=== PATIENT | female | born 1975 | race African-American/Black ===

== ENCOUNTER 2016-05-13 11:40 | Emergency (ER) | payer MEDICAID ==
[~2016-05-13] VITALS: Ht 170.2 cm; Wt 73.5 kg
[2016-05-13 12:40] VITALS: BP 149/103
[2016-05-13] MEDS ORDERED: HYDROmorphone HCL 2 MG/ML VL IM ONE (13:15)
[2016-05-13] MEDS ORDERED: ONDANSETRON ODT 4 MG TAB PO ONE (13:15)
[2016-05-13] MEDS ORDERED: cefTRIAXone SOD 1,000 MG VL IM ONE (13:15)
== END 2016-05-13 13:16 | disposition home or self-care (01) ==
LOC: ER 11:40
DX: N76.4 Abscess of vulva (principal); E11.9 Type 2 diabetes mellitus without complications; I10 Essential (primary) hypertension; F17.210 Nicotine dependence, cigarettes, uncomplicated
CPT/HCPCS: 10060; 96372; 99284; C1887; J0696; J1170; Q0162

== ENCOUNTER 2017-04-07 08:39 | Inpatient (IN) | payer MEDICAID ==
[~2017-04-07] VITALS: Ht 170.2 cm; Wt 82.1 kg
[2017-04-07] MEDS ORDERED: IPRATROPIUM BROM 0.5 MG/2.5ML INH SOL NEB ONE (09:15)
[2017-04-07] MEDS ORDERED: FUROSEMIDE 40 MG/4 ML VIAL IV ONE (09:15)
[2017-04-07] MEDS ORDERED: ALBUTEROL SULF 2.5 MG/0.5ML(0.5%) NEB SOLN NEB ONE (09:15)
[2017-04-07] MEDS ORDERED: AZITHROMYCIN 500MG/ 250ML 250 ML IV ONE ×2 (10:30→11:00)
[2017-04-07] MEDS ORDERED: cefTRIAXone 1GM/10ml IVPUSH 10 ML IV ONE ×2 (10:30→11:00)
[2017-04-07] MEDS ORDERED: SODIUM CHLORIDE 0.9% 1,000 ML IV SCH (11:00)
[2017-04-07] MEDS ORDERED: HYDROcodone-ACET 5/325MG TAB PO PRN (11:00)
[2017-04-07] MEDS ORDERED: NITROGLYCERIN 0.4 MG SL TAB SL PRN (11:00)
[2017-04-07] MEDS ORDERED: LABETALOL HCL 5 MG/ML ML 20ML VIAL IV PRN ×2 (11:00→15:00)
[2017-04-07] MEDS ORDERED: MORPHINE SULFATE 10 MG/ML INJ 1ML SDV IV PRN (11:00)
[2017-04-07] MEDS ORDERED: KETOROLAC TROMETH 30 MG/ML 1ML VIAL IV ONE (11:00)
[2017-04-07] MEDS ORDERED: ONDANSETRON HCL 4 MG/2 ML VIAL IV PRN (11:00)
[2017-04-07] MEDS ORDERED: CARVEDILOL 3.125 MG TAB PO ONE (11:00)
[2017-04-07] MEDS ORDERED: LISI-646 PO (11:09)
[2017-04-07] MEDS ORDERED: INSUINJ7 IJ (11:09)
[2017-04-07] MEDS ORDERED: INSLANTI SC (11:09)
[2017-04-07] MEDS ORDERED: CARV6.25 PO (11:09)
[2017-04-07 11:20] LABS: INR 0.97 (0.9-1.15); Partial Thromboplastin Time 27.3 sec (22.64-33.71); Prothrombin Time 10.6 sec (9.37-12.3)
[2017-04-07 11:27] LABS: Albumin 2.6 g/dL (3.4-5.0); Bilirubin, Total 0.4 mg/dL (0.2-1.0); Calcium 7.9 mg/dL (8.5-10.1); Potassium 3.6 mmol/L (3.5-5.1); Total Protein 6.8 g/dL (6.4-8.2)
[2017-04-07] MEDS ORDERED: DEXTROSE (50%) 50ML SYRG IV PRN (11:30)
[2017-04-07 11:35] LABS: Basophils # (auto) 0.1 uL; Basophils % (auto) 1.1 % (0.0-2.0); Eosinophils # (auto) 0.1 uL; Eosinophils % (auto) 2.6 % (0.0-7.0); Hemoglobin 15.2 g/dL (12.2-16.2); Lymphocytes # (auto) 2.6 uL; Lymphocytes % (auto) 53.4 % (10.0-50.0); Mean Corpuscular Hemoglobin 28.8 pg (28.0-32.0); Mean Corpuscular Volume 87.5 fL (80.0-100.0); Monocytes # (auto) 0.5 uL; Monocytes % (auto) 10.4 % (0.0-12.0); Neutrophils # (auto) 1.6 uL; Neutrophils % (auto) 32.5 % (37.0-80.0); Nucleated Red Blood Cells % 0.5 %; Platelet Count (auto) 176 10^3/uL (140-450); Red Blood Cells 5.26 10^6/uL (4.0-5.20); Red Cell Distribution Width 13.7 % (11.8-14.3); White Blood Cell 4.8 10^3/uL (4.4-10.8)
[2017-04-07] MEDS ORDERED: ASPirin 81 mg TAB PO ONE (11:45)
[2017-04-07] MEDS ORDERED: ALPRAZolam 0.25 MG TAB PO PRN (11:45)
[2017-04-07 11:46] LABS: Urine Bacteria NONE SEEN /hpf (None Seen); Urine Blood Negative /uL (Negative); Urine Specific Gravity 1.008 (1.001-1.035); Urine WBC 76 /hpf (0 - 5)
[2017-04-07] MEDS: ACCU-CHEK COMFORT CURVE STRIP VI SCH ×3 (11:50→22:00)
[2017-04-07] MEDS: InsuLIN REG 1unit/0.01ml Soln (100units/ml) SC SCH ×3 (11:50→22:00)
[2017-04-07 11:56] LABS: Cholesterol 202 mg/dL (< 200); HDL Cholesterol 122 mg/dL (40-59); LDL Cholesterol 74 mg/dL (< 100); Triglycerides 57 mg/dL (< 150)
[2017-04-07] MEDS ORDERED: NITROGLYCERIN 0.2MG/HR TOPICAL PATCH TD ONE (12:00)
[2017-04-07] MEDS ORDERED: ALBUTEROL SULF 2.5 MG/0.5ML(0.5%) NEB SOLN NEB SCH (12:00)
[2017-04-07 12:09] LABS: Alcohol, Urine < 3.0 mg/dL (0-5); Amphetamine Screen, Urine POSITIVE (NEGATIVE); Barbiturate Scree,Urine NEGATIVE (NEGATIVE); Benzodiazephine Screen, Urine NEGATIVE (NEGATIVE); Cannabinoid Screen, Urine NEGATIVE (NEGATIVE); Cocaine Screen, Urine NEGATIVE (NEGATIVE); Opiate Scree,Urine NEGATIVE (NEGATIVE); Phencyclidine Screen, Urine NEGATIVE (NEGATIVE)
[2017-04-07] MEDS: IPRATROPIUM BROM 0.5 MG/2.5ML INH SOL NEB SCH ×2 (12:25→18:00)
[2017-04-07 14:41] VITALS: BP 145/107
[2017-04-07] MEDS ORDERED: LISINOPRIL 10 MG TAB PO ONE (15:00)
[2017-04-07 16:38] VITALS: BP 122/87
[2017-04-07 17:16] VITALS: BP 122/87
[2017-04-07] MEDS ORDERED: GABA300C10 PO (17:34)
[2017-04-07] MEDS ORDERED: CITA10TA70 PO (17:34)
[2017-04-07] MEDS ORDERED: GABA-339 PO (17:34)
[2017-04-07] MEDS ORDERED: METF-370 PO (17:34)
[2017-04-07] MEDS: MORPHINE SULFATE 10 MG/ML INJ 1ML SDV IV PRN (20:30)
[2017-04-07] MEDS: ATORVASTATIN 20 MG TAB PO SCH (21:59)
[2017-04-07] MEDS: CARVEDILOL 3.125 MG TAB PO SCH (21:59)
[2017-04-07 22:00] VITALS: BP 131/97
[2017-04-07] MEDS: INSULIN DETEMIR(LEVEMIR) 1unit/0.01ml Soln (100units/ml) SC SCH (22:00)
[2017-04-07] MEDS: GABAPENTIN 100 MG CAP PO SCH (22:00)
[2017-04-08] MEDS: MORPHINE SULFATE 10 MG/ML INJ 1ML SDV IV PRN ×4 (00:29→21:10)
[2017-04-08 04:55] VITALS: BP 117/86
[2017-04-08] MEDS: ACCU-CHEK COMFORT CURVE STRIP VI SCH ×4 (05:55→22:20)
[2017-04-08] MEDS: InsuLIN REG 1unit/0.01ml Soln (100units/ml) SC SCH ×4 (05:56→22:19)
[2017-04-08] MEDS: IPRATROPIUM BROM 0.5 MG/2.5ML INH SOL NEB SCH ×4 (06:00→19:40)
[2017-04-08 08:30] VITALS: BP 123/79
[2017-04-08 09:07] LABS: BUN/Creatinine Ratio 26.3; Calcium 8.3 mg/dL (8.5-10.1); Potassium 4.1 mmol/L (3.5-5.1)
[2017-04-08 09:09] LABS: Hematocrit 43.6 % (36.0-46.0); Hemoglobin 14.2 g/dL (12.2-16.2); Mean Corpuscular Hemoglobin 28.5 pg (28.0-32.0); Mean Corpuscular Hgb Conc. 32.5 g/dL (32.0-36.0); Mean Corpuscular Volume 87.6 fL (80.0-100.0); Platelet Count (auto) 159 10^3/uL (140-450); Red Blood Cells 4.97 10^6/uL (4.0-5.20); Red Cell Distribution Width 13.7 % (11.8-14.3); White Blood Cell 4.8 10^3/uL (4.4-10.8)
[2017-04-08 09:16] LABS: Band Neutrophils % (manual) 0
[2017-04-08 09:17] LABS: Basophils % (manual) 0 (0.0-2.0); Blast Cells 0; Metamyelocytes % 0; Myelocytes % 0; Promyelocytes % 0; Reactive Lymphocytes 0
[2017-04-08] MEDS: cefTRIAXone 1GM/10ml IVPUSH 10 ML IV SCH (09:46)
[2017-04-08] MEDS: NITROGLYCERIN 0.2MG/HR TOPICAL PATCH TD SCH (09:48)
[2017-04-08] MEDS: AZITHROMYCIN 500MG/ 250ML 250 ML IV SCH (09:48)
[2017-04-08] MEDS: FUROSEMIDE 40 MG/4 ML VIAL IV SCH (09:49)
[2017-04-08] MEDS: ASPirin 81 mg TAB PO SCH (09:50)
[2017-04-08] MEDS: CARVEDILOL 3.125 MG TAB PO SCH ×2 (09:50→22:02)
[2017-04-08] MEDS: GABAPENTIN 100 MG CAP PO SCH ×2 (09:51→22:03)
[2017-04-08] MEDS: LISINOPRIL 10 MG TAB PO SCH (09:52)
[2017-04-08] MEDS ORDERED: POTASSIUM CHL 20 Meq TABLET PO SCH (10:00)
[2017-04-08] MEDS: INSULIN DETEMIR(LEVEMIR) 1unit/0.01ml Soln (100units/ml) SC SCH ×2 (10:42→22:19)
[2017-04-08 10:59] LABS: Eosinophils % (manual) 2 (0-7); Lymphocytes % (manual) 65 (10.0-50.0); Monocytes % (manual) 8 (0-12)
[2017-04-08] MEDS ORDERED: CARVEDILOL 3.125 MG TAB PO ONE (11:30)
[2017-04-08 12:30] VITALS: BP 130/76
[2017-04-08] MEDS ORDERED: SPIRONOLACTONE 25 MG TAB PO ONE (16:15)
[2017-04-08 17:17] VITALS: BP 102/72
[2017-04-08 22:00] VITALS: BP 114/76
[2017-04-08] MEDS: predniSONE 20 MG TAB PO SCH (22:01)
[2017-04-08] MEDS: ATORVASTATIN 20 MG TAB PO SCH (22:02)
[2017-04-09 05:24] LABS: Basophils # (auto) 0 uL; Basophils % (auto) 0.8 % (0.0-2.0); Eosinophils # (auto) 0.1 uL; Eosinophils % (auto) 1.5 % (0.0-7.0); Hematocrit 44.3 % (36.0-46.0); Hemoglobin 14.6 g/dL (12.2-16.2); Lymphocytes # (auto) 1.4 uL; Lymphocytes % (auto) 33.3 % (10.0-50.0); Mean Corpuscular Hemoglobin 28.9 pg (28.0-32.0); Mean Corpuscular Volume 87.6 fL (80.0-100.0); Monocytes # (auto) 0.4 uL; Monocytes % (auto) 9.2 % (0.0-12.0); Neutrophils # (auto) 2.3 uL; Neutrophils % (auto) 55.2 % (37.0-80.0); Nucleated Red Blood Cells % 0.2 %; Platelet Count (auto) 160 10^3/uL (140-450); Red Blood Cells 5.05 10^6/uL (4.0-5.20); Red Cell Distribution Width 13.4 % (11.8-14.3); White Blood Cell 4.2 10^3/uL (4.4-10.8)
[2017-04-09 05:43] LABS: BUN/Creatinine Ratio 26.7; Calcium 8.9 mg/dL (8.5-10.1)
[2017-04-09 05:45] LABS: Potassium 5.9 mmol/L (3.5-5.1)
[2017-04-09 05:54] VITALS: BP 114/93
[2017-04-09] MEDS: InsuLIN REG 1unit/0.01ml Soln (100units/ml) SC SCH ×3 (06:12→17:29)
[2017-04-09] MEDS: ACCU-CHEK COMFORT CURVE STRIP VI SCH ×3 (06:12→17:29)
[2017-04-09] MEDS: IPRATROPIUM BROM 0.5 MG/2.5ML INH SOL NEB SCH ×3 (06:50→18:00)
[2017-04-09 08:00] VITALS: BP 123/84
[2017-04-09 08:16] VITALS: BP 123/84
[2017-04-09] MEDS: MORPHINE SULFATE 10 MG/ML INJ 1ML SDV IV PRN (09:57)
[2017-04-09] MEDS: cefTRIAXone 1GM/10ml IVPUSH 10 ML IV SCH (09:57)
[2017-04-09] MEDS ORDERED: SPIRONOLACTONE 25 MG TAB PO SCH (10:00)
[2017-04-09] MEDS: FUROSEMIDE 40 MG/4 ML VIAL IV SCH (10:55)
[2017-04-09] MEDS: AZITHROMYCIN 500MG/ 250ML 250 ML IV SCH (10:56)
[2017-04-09] MEDS: ASPirin 81 mg TAB PO SCH (10:56)
[2017-04-09] MEDS: predniSONE 20 MG TAB PO SCH (10:57)
[2017-04-09] MEDS: CARVEDILOL 3.125 MG TAB PO SCH (10:58)
[2017-04-09] MEDS: GABAPENTIN 100 MG CAP PO SCH (10:59)
[2017-04-09] MEDS: LISINOPRIL 10 MG TAB PO SCH (11:00)
[2017-04-09] MEDS: NITROGLYCERIN 0.2MG/HR TOPICAL PATCH TD SCH (11:01)
[2017-04-09] MEDS: INSULIN DETEMIR(LEVEMIR) 1unit/0.01ml Soln (100units/ml) SC SCH (11:32)
[2017-04-09 12:00] VITALS: BP 139/75
[2017-04-09] MEDS ORDERED: CARV6.25 PO (15:44)
[2017-04-09] MEDS ORDERED: PRE5T PO (15:44)
[2017-04-09] MEDS ORDERED: ASPI81CH43 PO (15:44)
[2017-04-09] MEDS ORDERED: SPIR25TA88 PO (15:44)
[2017-04-09] MEDS ORDERED: ATOR20TA50 PO (15:44)
[2017-04-09] MEDS ORDERED: CEPH-37 PO (15:44)
[2017-04-09] MEDS ORDERED: DEXT1LIQ32 PO (15:55)
[2017-04-09 17:09] VITALS: BP 123/68
[2017-04-09 18:55] VITALS: BP 139/75
== END 2017-04-09 20:00 | disposition home or self-care (01) | DRG 190 ==
LOC: ER 08:39 → EDBD 08:39 → TELE 08:40 → TELE-WESTW 16:15
PROVIDERS: ADMIT Internal Medicine; ATTEND Hospitalist
DX: I21.4 Non-ST elevation (NSTEMI) myocardial infarction (principal); J96.01 Acute respiratory failure with hypoxia; I50.33 Acute on chronic diastolic (congestive) heart failure; J18.1 Lobar pneumonia, unspecified organism; I11.0 Hypertensive heart disease with heart failure; I42.0 Dilated cardiomyopathy; E11.40 Type 2 diabetes mellitus with diabetic neuropathy, unspecified; E44.0 Moderate protein-calorie malnutrition; J44.0 Chronic obstructive pulmonary disease with (acute) lower respiratory infection; E78.5 Hyperlipidemia, unspecified; F12.10 Cannabis abuse, uncomplicated; F15.10 Other stimulant abuse, uncomplicated; F17.210 Nicotine dependence, cigarettes, uncomplicated; F41.9 Anxiety disorder, unspecified; Z82.49 Family history of ischemic heart disease and other diseases of the circulatory system; Z79.4 Long term (current) use of insulin; Z79.899 Other long term (current) drug therapy; Z68.28 Body mass index [BMI] 28.0-28.9, adult
CPT/HCPCS: 36415; 71046; 80048; 80053; 80061; 80307; 81001; 82962; 83036; 83880; 84132; 84443; 84484; 85007; 85025; 85027; 85610; 85730; 87040; 87070; 87205; 87400; 93005; 93306; 94640; 96361; 96365; 96372; 96375; J1815; J1885; J2405

== ENCOUNTER 2017-11-03 12:05 | Inpatient (IN) | payer MEDICAID ==
[~2017-11-03] VITALS: Ht 170.2 cm; Wt 81.6 kg
[~2017-11-03 12:05] MED LIST: ASPI81CH43 PO; ATOR20TA50 PO; CARV6.25 PO; CEPH-37 PO; CITA10TA70 PO; DEXT1LIQ32 PO; GABA-339 PO; GABA300C10 PO; INSLANTI SC; INSUINJ7 IJ; LISI-646 PO; METF-370 PO; PRE5T PO; SPIR25TA88 PO
[2017-11-03 16:08] LABS: Hematocrit 46.3 % (36.0-46.0); Hemoglobin 15.1 g/dL (12.2-16.2); Mean Corpuscular Hemoglobin 28.5 pg (28.0-32.0); Mean Corpuscular Hgb Conc. 32.7 g/dL (32.0-36.0); Mean Corpuscular Volume 87.2 fL (80.0-100.0); Platelet Count (auto) 160 10^3/uL (140-450); Red Blood Cells 5.31 10^6/uL (4.0-5.20); Red Cell Distribution Width 14.4 % (11.8-14.3); White Blood Cell 5.1 10^3/uL (4.4-10.8)
[2017-11-03 16:19] LABS: Band Neutrophils % (manual) 0; Basophils % (manual) 0 (0.0-2.0); Blast Cells 0; Eosinophils % (manual) 0 (0-7); Metamyelocytes % 0; Myelocytes % 0; Promyelocytes % 0; Reactive Lymphocytes 0
[2017-11-03 16:30] LABS: Albumin 2.6 g/dL (3.4-5.0); BUN/Creatinine Ratio 10.5; Bilirubin, Total 0.9 mg/dL (0.2-1.0); Calcium 7.7 mg/dL (8.5-10.1); Potassium 5.1 mmol/L (3.5-5.1)
[2017-11-03 17:05] LABS: Lymphocytes % (manual) 57 (10.0-50.0); Monocytes % (manual) 10 (0-12)
[2017-11-03 17:19] LABS: Urine Pregnacy Test Negative (Negative)
[2017-11-03 17:23] LABS: Urine Bacteria NONE SEEN /hpf (None Seen); Urine Blood 1+ /uL (Negative); Urine Mucus FEW (None Seen); Urine Specific Gravity 1.043 (1.001-1.035); Urine WBC 7 /hpf (0 - 5)
[2017-11-03 17:39] LABS: Alcohol, Urine < 3.0 mg/dL (0-5); Amphetamine Screen, Urine POSITIVE (NEGATIVE); Barbiturate Scree,Urine NEGATIVE (NEGATIVE); Benzodiazephine Screen, Urine NEGATIVE (NEGATIVE); Cannabinoid Screen, Urine POSITIVE (NEGATIVE); Cocaine Screen, Urine NEGATIVE (NEGATIVE); Opiate Scree,Urine NEGATIVE (NEGATIVE); Phencyclidine Screen, Urine NEGATIVE (NEGATIVE)
[2017-11-03] MEDS ORDERED: MORPHINE SULFATE 4 MG/ML SYR/VIAL IV ONE (17:45)
[2017-11-03] MEDS ORDERED: FUROSEMIDE 40 MG/4 ML VIAL IV ONE (17:45)
[2017-11-03] MEDS ORDERED: ONDANSETRON HCL 4 MG/2 ML VIAL IV ONE (17:45)
[2017-11-03] MEDS ORDERED: PROMETHAZINE HCL 25 MG/ML 1ML ONE (17:52)
[2017-11-03] MEDS ORDERED: NITROGLYCERIN 0.4 MG SL TAB SL PRN (18:00)
[2017-11-03] MEDS ORDERED: DEXTROSE (50%) 50ML SYRG IV PRN (18:00)
[2017-11-03] MEDS ORDERED: ACETAMINOPHEN 325 MG TAB PO PRN (18:00)
[2017-11-03] MEDS ORDERED: MORPHINE SULF INJ 2 MG/ML SYRINGE 1ML IV PRN ×2 (18:00)
[2017-11-03] MEDS ORDERED: TEMAZEPAM 15 MG CAP PO PRN (18:00)
[2017-11-03] MEDS ORDERED: PROMETHAZINE HCL 25 MG/ML 1ML IV ONE (18:00)
[2017-11-03] MEDS ORDERED: DOCUSATE SOD 100 MG CAP PO PRN (18:00)
[2017-11-03] MEDS: SPIRONOLACTONE 25 MG TAB PO SCH (18:23)
[2017-11-03] MEDS ORDERED: PROMETHAZINE HCL 25 MG/ML 1ML IV PRN (18:30)
[2017-11-03] MEDS ORDERED: cloNIDine HCL 0.1 MG TAB PO PRN (18:30)
[2017-11-03] MEDS: Glucerna Carbsteady SHAKE Vanilla 8oz PO SCH (18:33)
[2017-11-03 19:16] LABS: INR 1.02 (0.9-1.15); Prothrombin Time 10.9 sec (9.27-12.13)
[2017-11-03] MEDS ORDERED: GABAPENTIN 300 MG CAP PO SCH (22:00)
[2017-11-03] MEDS: APIDRA 100 UNIT/ML SC SCH (22:00)
[2017-11-03] MEDS: CARVEDILOL 12.5 MG TAB PO SCH (22:06)
[2017-11-03] MEDS ORDERED: CARVEDILOL 3.125 MG TAB PO ONE (22:15)
[2017-11-03] MEDS ORDERED: hydrALAZINE HCL 25 MG TAB PO ONE (22:15)
[2017-11-03] MEDS: ACCU-CHEK COMFORT CURVE STRIP VI SCH (22:30)
[2017-11-03] MEDS: FAMOTIDINE 20 MG TAB PO SCH (22:30)
[2017-11-03] MEDS: INSULIN LANTUS (GLARGINE) 1 /0.01ml (100units/ml) SC SCH (22:30)
[2017-11-03] MEDS: InsuLIN REG 1unit/0.01ml Soln (100units/ml) SC SCH (22:30)
[2017-11-03] MEDS: SODIUM CHLOR 0.9% PF (SALINE LOCK) 10ML VIAL/SYR IV SCH (23:00)
[2017-11-04] VITALS (7 sets, daily range): BP systolic 90–104; BP diastolic 57–73
[2017-11-04] MEDS: SPIRONOLACTONE 25 MG TAB PO SCH ×2 (05:44→18:28)
[2017-11-04] MEDS: SODIUM CHLOR 0.9% PF (SALINE LOCK) 10ML VIAL/SYR IV SCH ×3 (05:46→21:37)
[2017-11-04] MEDS: FUROSEMIDE 40 MG/4 ML VIAL IV SCH ×2 (05:46→18:27)
[2017-11-04] MEDS: APIDRA 100 UNIT/ML SC SCH ×3 (05:59→21:37)
[2017-11-04] MEDS: ACCU-CHEK COMFORT CURVE STRIP VI SCH ×4 (06:19→21:46)
[2017-11-04] MEDS: HYDROcodone-ACET 5/325MG TAB PO PRN ×4 (06:35→23:33)
[2017-11-04] MEDS: InsuLIN REG 1unit/0.01ml Soln (100units/ml) SC SCH ×4 (06:37→21:52)
[2017-11-04] MEDS: INSULIN LANTUS (GLARGINE) 1 /0.01ml (100units/ml) SC SCH ×2 (06:38→21:49)
[2017-11-04] MEDS: Glucerna Carbsteady SHAKE Vanilla 8oz PO SCH ×3 (08:00→18:28)
[2017-11-04] MEDS ORDERED: PNEUMOCOCCAL VACC POLYS 25 MCG/0.5 ML VIAL IM ONE (09:00)
[2017-11-04] MEDS: FAMOTIDINE 20 MG TAB PO SCH ×2 (09:20→21:36)
[2017-11-04] MEDS: CITALOPRAM HYDROBR 20 MG TAB PO SCH (09:20)
[2017-11-04] MEDS: MULTIPLE VITAMIN TAB PO SCH (09:21)
[2017-11-04] MEDS: CARVEDILOL 12.5 MG TAB PO SCH ×2 (09:22→21:46)
[2017-11-04] MEDS ORDERED: hydrALAZINE HCL 25 MG TAB PO SCH (10:00)
[2017-11-04] MEDS ORDERED: GABAPENTIN 300 MG CAP PO SCH (10:00)
[2017-11-04] MEDS ORDERED: CARVEDILOL 3.125 MG TAB PO SCH (10:00)
[2017-11-04] MEDS ORDERED: FUROSEMIDE 40 MG/4 ML VIAL IV SCH (10:00)
[2017-11-04] MEDS ORDERED: LISINOPRIL 20 MG TAB PO SCH (10:00)
[2017-11-04] MEDS ORDERED: predniSONE 20 MG TAB PO SCH (10:00)
[2017-11-04 11:10] LABS: Basophils # (auto) 0 uL; Basophils % (auto) 0.7 % (0.0-2.0); Eosinophils # (auto) 0 uL; Eosinophils % (auto) 0.7 % (0.0-7.0); Hematocrit 44.6 % (36.0-46.0); Hemoglobin 14.5 g/dL (12.2-16.2); Lymphocytes # (auto) 2.3 uL; Mean Corpuscular Hemoglobin 28.2 pg (28.0-32.0); Mean Corpuscular Hgb Conc. 32.4 g/dL (32.0-36.0); Mean Corpuscular Volume 86.8 fL (80.0-100.0); Monocytes # (auto) 0.4 uL; Monocytes % (auto) 9.2 % (0.0-12.0); Neutrophils # (auto) 1.9 uL; Neutrophils % (auto) 40.4 % (37.0-80.0); Nucleated Red Blood Cells % 0.1 %; Platelet Count (auto) 154 10^3/uL (140-450); Red Blood Cells 5.13 10^6/uL (4.0-5.20); Red Cell Distribution Width 14.2 % (11.8-14.3); White Blood Cell 4.7 10^3/uL (4.4-10.8)
[2017-11-04 11:28] LABS: Albumin 2.2 g/dL (3.4-5.0); BUN/Creatinine Ratio 11.9; Bilirubin, Total 0.5 mg/dL (0.2-1.0); Calcium 7.6 mg/dL (8.5-10.1); Potassium 4.6 mmol/L (3.5-5.1); Total Protein 6.2 g/dL (6.4-8.2)
[2017-11-04] MEDS: METOCLOPRAMIDE HCL 5MG/ml INJ 2ml VIAL IV SCH ×2 (17:18→23:31)
[2017-11-04] MEDS: GABAPENTIN 300 MG CAP PO SCH (21:36)
[2017-11-05 05:00] VITALS: BP 90/51
[2017-11-05] MEDS: FUROSEMIDE 40 MG/4 ML VIAL IV SCH (05:40)
[2017-11-05] MEDS: APIDRA 100 UNIT/ML SC SCH ×2 (05:41→14:00)
[2017-11-05] MEDS: SODIUM CHLOR 0.9% PF (SALINE LOCK) 10ML VIAL/SYR IV SCH ×2 (05:41→14:12)
[2017-11-05] MEDS: METOCLOPRAMIDE HCL 5MG/ml INJ 2ml VIAL IV SCH ×2 (05:41→11:23)
[2017-11-05] MEDS: SPIRONOLACTONE 25 MG TAB PO SCH (05:58)
[2017-11-05] MEDS: ACCU-CHEK COMFORT CURVE STRIP VI SCH ×2 (06:07→11:24)
[2017-11-05] MEDS: InsuLIN REG 1unit/0.01ml Soln (100units/ml) SC SCH ×2 (06:07→11:25)
[2017-11-05] MEDS: HYDROcodone-ACET 5/325MG TAB PO PRN (06:07)
[2017-11-05] MEDS: INSULIN LANTUS (GLARGINE) 1 /0.01ml (100units/ml) SC SCH (06:07)
[2017-11-05 07:03] LABS: Hematocrit 42.2 % (36.0-46.0); Hemoglobin 14.1 g/dL (12.2-16.2); Mean Corpuscular Hemoglobin 28.9 pg (28.0-32.0); Mean Corpuscular Hgb Conc. 33.3 g/dL (32.0-36.0); Mean Corpuscular Volume 86.7 fL (80.0-100.0); Platelet Count (auto) 150 10^3/uL (140-450); Red Blood Cells 4.86 10^6/uL (4.0-5.20); Red Cell Distribution Width 14.3 % (11.8-14.3); White Blood Cell 5.7 10^3/uL (4.4-10.8)
[2017-11-05 07:06] LABS: Band Neutrophils % (manual) 0; Basophils % (manual) 0 (0.0-2.0); Blast Cells 0; Metamyelocytes % 0; Myelocytes % 0; Promyelocytes % 0; Reactive Lymphocytes 0
[2017-11-05 07:22] LABS: Potassium 4.5 mmol/L (3.5-5.1)
[2017-11-05 07:28] LABS: Albumin 2.1 g/dL (3.4-5.0); BUN/Creatinine Ratio 18.9; Calcium 7.9 mg/dL (8.5-10.1)
[2017-11-05 07:31] LABS: Bilirubin, Total 0.3 mg/dL (0.2-1.0); Total Protein 6.1 g/dL (6.4-8.2)
[2017-11-05 07:45] LABS: Eosinophils % (manual) 2 (0-7); Lymphocytes % (manual) 63 (10.0-50.0); Monocytes % (manual) 6 (0-12)
[2017-11-05 08:34] VITALS: BP 92/71
[2017-11-05] MEDS: Glucerna Carbsteady SHAKE Vanilla 8oz PO SCH ×2 (09:54→12:00)
[2017-11-05] MEDS: CARVEDILOL 12.5 MG TAB PO SCH (09:55)
[2017-11-05] MEDS: FAMOTIDINE 20 MG TAB PO SCH (09:55)
[2017-11-05] MEDS: MULTIPLE VITAMIN TAB PO SCH (09:55)
[2017-11-05] MEDS: CITALOPRAM HYDROBR 20 MG TAB PO SCH (09:55)
[2017-11-05] MEDS: GABAPENTIN 300 MG CAP PO SCH (09:56)
[2017-11-05 12:14] VITALS: BP 109/70
== END 2017-11-05 15:47 | disposition home or self-care (01) | DRG 194 ==
LOC: ER 12:05 → EDBD 12:05 → TELE 12:06 → TELE-EAST 23:52
PROVIDERS: ADMIT Internal Medicine; ATTEND Hospitalist
DX: I13.0 Hypertensive heart and chronic kidney disease with heart failure and stage 1 through stage 4 chronic kidney disease, or unspecified chronic kidney disease (principal); E11.21 Type 2 diabetes mellitus with diabetic nephropathy; E44.0 Moderate protein-calorie malnutrition; I42.7 Cardiomyopathy due to drug and external agent; E11.65 Type 2 diabetes mellitus with hyperglycemia; I50.43 Acute on chronic combined systolic (congestive) and diastolic (congestive) heart failure; E87.1 Hypo-osmolality and hyponatremia; K80.20 Calculus of gallbladder without cholecystitis without obstruction; E11.22 Type 2 diabetes mellitus with diabetic chronic kidney disease; N18.2 Chronic kidney disease, stage 2 (mild); F15.90 Other stimulant use, unspecified, uncomplicated; F17.210 Nicotine dependence, cigarettes, uncomplicated; F41.9 Anxiety disorder, unspecified; I25.10 Atherosclerotic heart disease of native coronary artery without angina pectoris; N20.0 Calculus of kidney; Z82.49 Family history of ischemic heart disease and other diseases of the circulatory system; Z83.3 Family history of diabetes mellitus; Z87.442 Personal history of urinary calculi; Z90.49 Acquired absence of other specified parts of digestive tract; Z79.899 Other long term (current) drug therapy; Z79.82 Long term (current) use of aspirin; Z79.4 Long term (current) use of insulin; Z68.28 Body mass index [BMI] 28.0-28.9, adult
CPT/HCPCS: 36415; 71046; 71260; 74177; 76705; 80053; 80307; 81001; 81025; 82150; 82962; 83036; 83690; 83880; 84484; 85007; 85025; 85027; 85379; 85610; 87081; 93005; 93306; 96374; 96375; J1815

== ENCOUNTER 2017-11-16 05:13 | Inpatient (IN) | payer MEDICAID ==
[~2017-11-16] VITALS: Ht 170.2 cm; Wt 89.3 kg
[~2017-11-16 05:13] MED LIST changes: -CEPH-37 PO; -DEXT1LIQ32 PO; -LISI-646 PO; -PRE5T PO
[2017-11-16] MEDS ORDERED: ONDANSETRON HCL 4 MG/2 ML VIAL IV ONE (08:15)
[2017-11-16] MEDS ORDERED: KETOROLAC TROMETH 30 MG/ML 1ML VIAL IV ONE (08:15)
[2017-11-16 08:47] LABS: Basophils # (auto) 0 uL; Basophils % (auto) 0.7 % (0.0-2.0); Eosinophils # (auto) 0 uL; Eosinophils % (auto) 0.6 % (0.0-7.0); Hematocrit 45.2 % (36.0-46.0); Hemoglobin 14.4 g/dL (12.2-16.2); Lymphocytes % (auto) 38.4 % (10.0-50.0); Mean Corpuscular Hemoglobin 27.7 pg (28.0-32.0); Mean Corpuscular Hgb Conc. 31.8 g/dL (32.0-36.0); Monocytes # (auto) 0.5 uL; Monocytes % (auto) 8.7 % (0.0-12.0); Neutrophils # (auto) 2.7 uL; Neutrophils % (auto) 51.6 % (37.0-80.0); Nucleated Red Blood Cells % 0.1 %; Platelet Count (auto) 149 10^3/uL (140-450); Red Blood Cells 5.19 10^6/uL (4.0-5.20); Red Cell Distribution Width 14.6 % (11.8-14.3); White Blood Cell 5.3 10^3/uL (4.4-10.8)
[2017-11-16 09:03] LABS: INR 1.12 (0.9-1.15); Partial Thromboplastin Time 26.1 sec (23.78-33.04); Prothrombin Time 11.9 sec (9.27-12.13)
[2017-11-16 09:11] LABS: Albumin 2.5 g/dL (3.4-5.0); BUN/Creatinine Ratio 13.7; Bilirubin, Total 0.8 mg/dL (0.2-1.0); Calcium 7.9 mg/dL (8.5-10.1); Potassium 3.9 mmol/L (3.5-5.1); Total Protein 6.4 g/dL (6.4-8.2)
[2017-11-16] MEDS ORDERED: MORPHINE SULFATE 4 MG/ML SYR/VIAL ONE (09:18)
[2017-11-16] MEDS ORDERED: MORPHINE SULFATE 4 MG/ML SYR/VIAL IV ONE (09:30)
[2017-11-16] MEDS ORDERED: PANTOPRAZOLE 40 MG/10 ML VIAL IV ONE (11:00)
[2017-11-16] MEDS ORDERED: cloNIDine HCL 0.1 MG TAB ONE (11:07)
[2017-11-16] MEDS ORDERED: cloNIDine HCL 0.1 MG TAB PO ONE (11:15)
[2017-11-16] MEDS ORDERED: DEXTROSE (50%) 50ML SYRG IV PRN (14:15)
[2017-11-16] MEDS ORDERED: FUROSEMIDE 40 MG/4 ML VIAL IV ONE (14:15)
[2017-11-16] MEDS ORDERED: POTASSIUM CHL 10 Meq TABLET PO ONE (14:15)
[2017-11-16] MEDS: LISINOPRIL 10 MG TAB PO SCH ×2 (14:30→21:37)
[2017-11-16] MEDS ORDERED: MORPHINE SULF INJ 2 MG/ML SYRINGE 1ML IV PRN (14:30)
[2017-11-16] MEDS ORDERED: DOCUSATE SOD 100 MG CAP PO PRN (14:30)
[2017-11-16] MEDS ORDERED: HYDROcodone-ACET 5/325MG TAB PO PRN (14:30)
[2017-11-16] MEDS ORDERED: NITROGLYCERIN 0.4 MG SL TAB SL PRN (14:30)
[2017-11-16] MEDS ORDERED: TEMAZEPAM 15 MG CAP PO PRN (14:30)
[2017-11-16] MEDS ORDERED: CARVEDILOL 12.5 MG TAB PO ONE (14:30)
[2017-11-16] MEDS ORDERED: ACETAMINOPHEN 325 MG TAB PO PRN (14:30)
[2017-11-16] MEDS: FAMOTIDINE 20 MG TAB PO SCH ×2 (14:37→21:37)
[2017-11-16] MEDS: MORPHINE SULF INJ 2 MG/ML SYRINGE 1ML IV PRN ×2 (16:40→21:51)
[2017-11-16] MEDS: ONDANSETRON HCL 4 MG/2 ML VIAL IV PRN ×2 (16:40→21:43)
[2017-11-16] MEDS ORDERED: PNEUMOCOCCAL VACC POLYS 25 MCG/0.5 ML VIAL IM ONE (18:00)
[2017-11-16] MEDS: ACCU-CHEK COMFORT CURVE STRIP VI SCH ×2 (18:13→22:02)
[2017-11-16] MEDS: SPIRONOLACTONE 25 MG TAB PO SCH (18:24)
[2017-11-16] MEDS: InsuLIN REG 1unit/0.01ml Soln (100units/ml) SC SCH ×2 (18:25→21:59)
[2017-11-16] MEDS: Glucerna Carbsteady SHAKE Vanilla 8oz PO SCH (18:43)
[2017-11-16 21:31] VITALS: BP 110/74
[2017-11-16] MEDS: ATORVASTATIN 20 MG TAB PO SCH (21:36)
[2017-11-16] MEDS: GABAPENTIN 300 MG CAP PO SCH (21:36)
[2017-11-16] MEDS: CARVEDILOL 12.5 MG TAB PO SCH (21:36)
[2017-11-16] MEDS: SODIUM CHLOR 0.9% PF (SALINE LOCK) 10ML VIAL/SYR IV SCH (21:40)
[2017-11-16] MEDS: INSULIN LANTUS (GLARGINE) 1 /0.01ml (100units/ml) SC SCH (21:57)
[2017-11-17 05:09] VITALS: BP 107/81
[2017-11-17] MEDS: SODIUM CHLOR 0.9% PF (SALINE LOCK) 10ML VIAL/SYR IV SCH ×3 (06:43→23:47)
[2017-11-17] MEDS: SPIRONOLACTONE 25 MG TAB PO SCH (06:44)
[2017-11-17] MEDS: INSULIN LANTUS (GLARGINE) 1 /0.01ml (100units/ml) SC SCH ×2 (06:45→22:00)
[2017-11-17] MEDS: ACCU-CHEK COMFORT CURVE STRIP VI SCH ×4 (06:46→23:53)
[2017-11-17] MEDS: InsuLIN REG 1unit/0.01ml Soln (100units/ml) SC SCH ×4 (06:47→22:00)
[2017-11-17 07:04] LABS: Basophils # (auto) 0 uL; Basophils % (auto) 0.6 % (0.0-2.0); Eosinophils # (auto) 0.1 uL; Eosinophils % (auto) 1.7 % (0.0-7.0); Hematocrit 41.8 % (36.0-46.0); Hemoglobin 13.4 g/dL (12.2-16.2); Lymphocytes # (auto) 2.4 uL; Lymphocytes % (auto) 51.3 % (10.0-50.0); Mean Corpuscular Hemoglobin 28.2 pg (28.0-32.0); Mean Corpuscular Hgb Conc. 32.2 g/dL (32.0-36.0); Mean Corpuscular Volume 87.6 fL (80.0-100.0); Monocytes # (auto) 0.5 uL; Neutrophils # (auto) 1.7 uL; Neutrophils % (auto) 36.4 % (37.0-80.0); Nucleated Red Blood Cells % 0.2 %; Platelet Count (auto) 123 10^3/uL (140-450); Red Blood Cells 4.77 10^6/uL (4.0-5.20); Red Cell Distribution Width 14.6 % (11.8-14.3); White Blood Cell 4.8 10^3/uL (4.4-10.8)
[2017-11-17 07:29] LABS: Albumin 2.2 g/dL (3.4-5.0); BUN/Creatinine Ratio 13.6; Bilirubin, Total 0.8 mg/dL (0.2-1.0); Calcium 7.4 mg/dL (8.5-10.1); Potassium 4.1 mmol/L (3.5-5.1); Total Protein 5.8 g/dL (6.4-8.2)
[2017-11-17 08:41] VITALS: BP 97/73
[2017-11-17] MEDS: ASPirin-EC 81 mg tab PO SCH (09:53)
[2017-11-17] MEDS: FAMOTIDINE 20 MG TAB PO SCH ×2 (09:53→23:49)
[2017-11-17] MEDS: MULTIPLE VITAMIN TAB PO SCH (09:53)
[2017-11-17] MEDS: CITALOPRAM HYDROBR 20 MG TAB PO SCH (10:00)
[2017-11-17] MEDS: CARVEDILOL 12.5 MG TAB PO SCH ×2 (10:00→23:49)
[2017-11-17] MEDS: LISINOPRIL 10 MG TAB PO SCH ×2 (10:00→23:48)
[2017-11-17] MEDS: FUROSEMIDE 40 MG/4 ML VIAL IV SCH (10:00)
[2017-11-17] MEDS: POTASSIUM CHL 10 Meq TABLET PO SCH (10:00)
[2017-11-17] MEDS: Glucerna Carbsteady SHAKE Vanilla 8oz PO SCH ×2 (10:10→15:03)
[2017-11-17 13:00] VITALS: BP 107/78
[2017-11-17 17:12] VITALS: BP 115/78
[2017-11-17] MEDS: ONDANSETRON HCL 4 MG/2 ML VIAL IV PRN (20:34)
[2017-11-17] MEDS: MORPHINE SULF INJ 2 MG/ML SYRINGE 1ML IV PRN (20:39)
[2017-11-17 22:00] VITALS: BP 101/75
[2017-11-17] MEDS: GABAPENTIN 300 MG CAP PO SCH (23:49)
[2017-11-17] MEDS: ATORVASTATIN 20 MG TAB PO SCH (23:49)
[2017-11-18 05:00] VITALS: BP_SYST 107; BP_SYST 128; BP_DIAS 60; BP_DIAS 74
[2017-11-18] MEDS: SPIRONOLACTONE 25 MG TAB PO SCH ×3 (06:11→18:16)
[2017-11-18] MEDS: SODIUM CHLOR 0.9% PF (SALINE LOCK) 10ML VIAL/SYR IV SCH ×3 (06:20→22:16)
[2017-11-18] MEDS: ACCU-CHEK COMFORT CURVE STRIP VI SCH ×4 (06:22→22:20)
[2017-11-18] MEDS: INSULIN LANTUS (GLARGINE) 1 /0.01ml (100units/ml) SC SCH ×2 (06:23→22:20)
[2017-11-18] MEDS: InsuLIN REG 1unit/0.01ml Soln (100units/ml) SC SCH ×4 (06:24→22:19)
[2017-11-18] MEDS: Glucerna Carbsteady SHAKE Vanilla 8oz PO SCH ×3 (08:00→18:16)
[2017-11-18 09:00] VITALS: BP 96/66
[2017-11-18] MEDS: FAMOTIDINE 20 MG TAB PO SCH (10:00)
[2017-11-18] MEDS: LISINOPRIL 10 MG TAB PO SCH ×2 (10:00→22:18)
[2017-11-18] MEDS: CARVEDILOL 12.5 MG TAB PO SCH ×2 (10:00→22:17)
[2017-11-18] MEDS: MULTIPLE VITAMIN TAB PO SCH (10:00)
[2017-11-18] MEDS: CITALOPRAM HYDROBR 20 MG TAB PO SCH (10:00)
[2017-11-18] MEDS: POTASSIUM CHL 10 Meq TABLET PO SCH (10:00)
[2017-11-18] MEDS: ASPirin-EC 81 mg tab PO SCH (10:00)
[2017-11-18] MEDS: FUROSEMIDE 40 MG/4 ML VIAL IV SCH (10:00)
[2017-11-18 14:22] VITALS: BP 92/62
[2017-11-18 17:00] VITALS: BP 110/64
[2017-11-18 22:00] VITALS: BP 127/82
[2017-11-18] MEDS: ATORVASTATIN 20 MG TAB PO SCH (22:17)
[2017-11-18] MEDS: GABAPENTIN 300 MG CAP PO SCH (22:17)
[2017-11-18] MEDS: PANTOPRAZOLE 40 MG TAB PO SCH (22:18)
[2017-11-19] MEDS: ONDANSETRON HCL 4 MG/2 ML VIAL IV PRN ×2 (01:21→09:20)
[2017-11-19] MEDS: MORPHINE SULF INJ 2 MG/ML SYRINGE 1ML IV PRN ×2 (01:22→09:21)
[2017-11-19 05:08] VITALS: BP 101/73
[2017-11-19] MEDS: SPIRONOLACTONE 25 MG TAB PO SCH (06:38)
[2017-11-19] MEDS: SODIUM CHLOR 0.9% PF (SALINE LOCK) 10ML VIAL/SYR IV SCH (06:38)
[2017-11-19] MEDS: ACCU-CHEK COMFORT CURVE STRIP VI SCH ×2 (06:39→11:30)
[2017-11-19] MEDS: InsuLIN REG 1unit/0.01ml Soln (100units/ml) SC SCH ×2 (06:45→11:30)
[2017-11-19] MEDS: INSULIN LANTUS (GLARGINE) 1 /0.01ml (100units/ml) SC SCH (06:46)
[2017-11-19 07:13] LABS: Hematocrit 41.1 % (36.0-46.0); Hemoglobin 13.6 g/dL (12.2-16.2); Mean Corpuscular Hemoglobin 28.6 pg (28.0-32.0); Mean Corpuscular Hgb Conc. 33.2 g/dL (32.0-36.0); Mean Corpuscular Volume 86.3 fL (80.0-100.0); Platelet Count (auto) 127 10^3/uL (140-450); Red Blood Cells 4.76 10^6/uL (4.0-5.20); Red Cell Distribution Width 14.5 % (11.8-14.3); White Blood Cell 5.9 10^3/uL (4.4-10.8)
[2017-11-19 07:16] LABS: Band Neutrophils % (manual) 0; Basophils % (manual) 0 (0.0-2.0); Blast Cells 0; Eosinophils % (manual) 0 (0-7); Metamyelocytes % 0; Myelocytes % 0; Promyelocytes % 0; Reactive Lymphocytes 0
[2017-11-19 07:28] LABS: BUN/Creatinine Ratio 15.5; Calcium 7.6 mg/dL (8.5-10.1); Magnesium 2.1 mg/dL (1.6-2.6); Potassium 4.6 mmol/L (3.5-5.1)
[2017-11-19 08:00] VITALS: BP 101/73
[2017-11-19 09:00] VITALS: BP 95/68
[2017-11-19] MEDS: CITALOPRAM HYDROBR 20 MG TAB PO SCH (09:19)
[2017-11-19] MEDS: POTASSIUM CHL 10 Meq TABLET PO SCH (09:19)
[2017-11-19] MEDS: MULTIPLE VITAMIN TAB PO SCH (09:19)
[2017-11-19] MEDS: LISINOPRIL 10 MG TAB PO SCH (09:19)
[2017-11-19] MEDS: ASPirin-EC 81 mg tab PO SCH (09:20)
[2017-11-19] MEDS: PANTOPRAZOLE 40 MG TAB PO SCH (09:20)
[2017-11-19] MEDS: CARVEDILOL 12.5 MG TAB PO SCH (09:20)
[2017-11-19] MEDS: FUROSEMIDE 40 MG/4 ML VIAL IV SCH (09:22)
[2017-11-19 09:23] LABS: Lymphocytes % (manual) 55 (10.0-50.0); Monocytes % (manual) 7 (0-12)
[2017-11-19] MEDS: Glucerna Carbsteady SHAKE Vanilla 8oz PO SCH ×2 (11:49→12:00)
[2017-11-19 12:51] VITALS: BP 95/68
[2017-11-19 13:00] VITALS: BP 105/59
== END 2017-11-19 17:08 | disposition home or self-care (01) ==
LOC: EDBD 05:13 → ER 05:18 → TELE 05:19 → TELE-EAST 16:57
PROVIDERS: ADMIT Internal Medicine; ATTEND Internal Medicine
DX: K80.00 Calculus of gallbladder with acute cholecystitis without obstruction (principal); I50.43 Acute on chronic combined systolic (congestive) and diastolic (congestive) heart failure; E44.0 Moderate protein-calorie malnutrition; E11.21 Type 2 diabetes mellitus with diabetic nephropathy; I42.9 Cardiomyopathy, unspecified; E87.1 Hypo-osmolality and hyponatremia; I13.0 Hypertensive heart and chronic kidney disease with heart failure and stage 1 through stage 4 chronic kidney disease, or unspecified chronic kidney disease; E11.22 Type 2 diabetes mellitus with diabetic chronic kidney disease; N18.2 Chronic kidney disease, stage 2 (mild); E78.5 Hyperlipidemia, unspecified; F15.10 Other stimulant abuse, uncomplicated; F17.210 Nicotine dependence, cigarettes, uncomplicated; Z79.899 Other long term (current) drug therapy; Z79.82 Long term (current) use of aspirin; Z79.84 Long term (current) use of oral hypoglycemic drugs; Z87.442 Personal history of urinary calculi; Z90.49 Acquired absence of other specified parts of digestive tract; Z68.30 Body mass index [BMI] 30.0-30.9, adult; Z23 Encounter for immunization
CPT/HCPCS: 36415; 74176; 76705; 78226; 80048; 80053; 82150; 82962; 83036; 83540; 83735; 83880; 84443; 84484; 84702; 85007; 85025; 85027; 85610; 85730; 87081; 93005; 96374; 96375; C9113; J1815; J1885; J2405

== ENCOUNTER 2017-12-06 09:33 | Inpatient (IN) | payer MEDICAID ==
[~2017-12-06] VITALS: Ht 170.2 cm; Wt 83.6 kg
[2017-12-06 10:21] LABS: Basophils # (auto) 0 uL; Basophils % (auto) 0.8 % (0.0-2.0); Eosinophils # (auto) 0 uL; Eosinophils % (auto) 0.6 % (0.0-7.0); Hematocrit 47.2 % (36.0-46.0); Hemoglobin 15.2 g/dL (12.2-16.2); Lymphocytes # (auto) 2.6 uL; Lymphocytes % (auto) 45.3 % (10.0-50.0); Mean Corpuscular Hemoglobin 27.4 pg (28.0-32.0); Mean Corpuscular Hgb Conc. 32.2 g/dL (32.0-36.0); Mean Corpuscular Volume 85.1 fL (80.0-100.0); Monocytes # (auto) 0.6 uL; Monocytes % (auto) 10.6 % (0.0-12.0); Neutrophils # (auto) 2.4 uL; Neutrophils % (auto) 42.7 % (37.0-80.0); Nucleated Red Blood Cells % 0.2 %; Platelet Count (auto) 134 10^3/uL (140-450); Red Blood Cells 5.55 10^6/uL (4.0-5.20); Red Cell Distribution Width 14.9 % (11.8-14.3); White Blood Cell 5.7 10^3/uL (4.4-10.8)
[2017-12-06 10:41] LABS: Albumin 2.3 g/dL (3.4-5.0); BUN/Creatinine Ratio 14.7; Bilirubin, Total 1.5 mg/dL (0.2-1.0); Calcium 8.2 mg/dL (8.5-10.1); Potassium 4.3 mmol/L (3.5-5.1); Total Protein 6.5 g/dL (6.4-8.2)
[2017-12-06] MEDS ORDERED: SODIUM CHLORIDE 0.9% 500 ML IV ONE (11:00)
[2017-12-06] MEDS ORDERED: ONDANSETRON HCL 4 MG/2 ML VIAL IM ONE (11:30)
[2017-12-06 11:36] LABS: INR 1.17 (0.9-1.15); Partial Thromboplastin Time 26.9 sec (23.78-33.04); Prothrombin Time 12.4 sec (9.27-12.13)
[2017-12-06] MEDS ORDERED: ONDANSETRON HCL 4 MG/2 ML VIAL IV ONE (11:45)
[2017-12-06] MEDS ORDERED: MORPHINE SULFATE 4 MG/ML SYR/VIAL IV ONE (11:45)
[2017-12-06 11:57] LABS: Urine Bacteria FEW /hpf (None Seen); Urine Blood 1+ /uL (Negative); Urine Mucus FEW (None Seen); Urine Specific Gravity 1.038 (1.001-1.035); Urine WBC 50 /hpf (0 - 5)
[2017-12-06 11:59] LABS: Alcohol, Urine < 3.0 mg/dL (0-5); Amphetamine Screen, Urine POSITIVE (NEGATIVE); Barbiturate Scree,Urine NEGATIVE (NEGATIVE); Benzodiazephine Screen, Urine NEGATIVE (NEGATIVE); Cannabinoid Screen, Urine POSITIVE (NEGATIVE); Cocaine Screen, Urine NEGATIVE (NEGATIVE); Opiate Scree,Urine NEGATIVE (NEGATIVE); Phencyclidine Screen, Urine NEGATIVE (NEGATIVE)
[2017-12-06 12:03] LABS: Magnesium 1.5 mg/dL (1.6-2.6)
[2017-12-06 12:27] LABS: Urine Pregnacy Test Negative (Negative)
[2017-12-06] MEDS ORDERED: LORazepam 0.5 MG TAB PO PRN (13:30)
[2017-12-06] MEDS ORDERED: cefTRIAXone 1GM/10ml IVPUSH 10 ML IV ONE (13:30)
[2017-12-06] MEDS ORDERED: MORPHINE SULFATE 4 MG/ML SYR/VIAL IV PRN (13:30)
[2017-12-06] MEDS ORDERED: NITROGLYCERIN 0.4 MG SL TAB SL PRN (13:30)
[2017-12-06] MEDS ORDERED: PANTOPRAZOLE 40 MG/10 ML VIAL IV ONE (13:30)
[2017-12-06] MEDS ORDERED: DEXTROSE (50%) 50ML SYRG IV PRN (13:30)
[2017-12-06] MEDS ORDERED: ACETAMINOPHEN 500 MG TAB PO PRN (13:30)
[2017-12-06] MEDS ORDERED: ONDANSETRON HCL 4 MG/2 ML VIAL IV PRN (13:30)
[2017-12-06] MEDS ORDERED: TEMAZEPAM 15 MG CAP PO PRN (13:30)
[2017-12-06] MEDS ORDERED: traMADol HCL 50 MG TAB PO PRN (13:30)
[2017-12-06] MEDS ORDERED: CITALOPRAM HYDROBR 20 MG TAB PO PRN (13:45)
[2017-12-06 14:08] LABS: CRP High Sensitivity 0.09 mg/dL (< 0.3)
[2017-12-06] MEDS: SODIUM CHLOR 0.9% PF (SALINE LOCK) 10ML VIAL/SYR IV SCH ×2 (14:49→21:35)
[2017-12-06] MEDS: NITROGLYCERIN 0.2MG/HR TOPICAL PATCH TD SCH (14:49)
[2017-12-06] MEDS: ENALAPRIL MALEATE 2.5 MG TAB PO SCH (14:49)
[2017-12-06 17:00] VITALS: BP 135/108
[2017-12-06] MEDS: MORPHINE SULFATE 4 MG/ML SYR/VIAL IV PRN ×2 (17:11→21:38)
[2017-12-06] MEDS: GABAPENTIN 300 MG CAP PO SCH (17:12)
[2017-12-06] MEDS: ACCU-CHEK COMFORT CURVE STRIP VI SCH (17:32)
[2017-12-06] MEDS: InsuLIN REG 1unit/0.01ml Soln (100units/ml) SC SCH (17:32)
[2017-12-06 17:36] VITALS: BP_SYST 135; BP_SYST 142; BP_DIAS 108; BP_DIAS 67
[2017-12-06] MEDS: CARVEDILOL 12.5 MG TAB PO SCH (21:36)
[2017-12-06] MEDS: INSULIN LANTUS (GLARGINE) 1 /0.01ml (100units/ml) SC SCH (21:37)
[2017-12-06 22:00] VITALS: BP 131/98
[2017-12-06] MEDS ORDERED: ATORVASTATIN 20 MG TAB PO SCH (22:00)
[2017-12-07] MEDS: ACCU-CHEK COMFORT CURVE STRIP VI SCH ×4 (00:34→18:22)
[2017-12-07] MEDS: MORPHINE SULFATE 4 MG/ML SYR/VIAL IV PRN ×4 (03:03→22:54)
[2017-12-07 05:00] VITALS: BP 128/91
[2017-12-07] MEDS: InsuLIN REG 1unit/0.01ml Soln (100units/ml) SC SCH ×4 (06:00→18:22)
[2017-12-07] MEDS: SODIUM CHLOR 0.9% PF (SALINE LOCK) 10ML VIAL/SYR IV SCH ×3 (06:32→22:12)
[2017-12-07] MEDS: GABAPENTIN 300 MG CAP PO SCH ×2 (06:33→18:14)
[2017-12-07 06:46] LABS: Basophils # (auto) 0 uL; Basophils % (auto) 0.8 % (0.0-2.0); Eosinophils # (auto) 0.1 uL; Eosinophils % (auto) 1.1 % (0.0-7.0); Hematocrit 42.7 % (36.0-46.0); Hemoglobin 14.1 g/dL (12.2-16.2); Lymphocytes # (auto) 2.4 uL; Lymphocytes % (auto) 54.4 % (10.0-50.0); Mean Corpuscular Hemoglobin 28.2 pg (28.0-32.0); Mean Corpuscular Hgb Conc. 33.1 g/dL (32.0-36.0); Mean Corpuscular Volume 85.3 fL (80.0-100.0); Monocytes # (auto) 0.5 uL; Monocytes % (auto) 11.8 % (0.0-12.0); Neutrophils # (auto) 1.4 uL; Neutrophils % (auto) 31.9 % (37.0-80.0); Nucleated Red Blood Cells % 0.3 %; Platelet Count (auto) 114 10^3/uL (140-450); Red Blood Cells 5.01 10^6/uL (4.0-5.20); White Blood Cell 4.5 10^3/uL (4.4-10.8)
[2017-12-07 07:08] LABS: Albumin 2.1 g/dL (3.4-5.0); BUN/Creatinine Ratio 15.7; Calcium 7.6 mg/dL (8.5-10.1); Potassium 4.5 mmol/L (3.5-5.1)
[2017-12-07 07:11] LABS: Bilirubin, Total 1.5 mg/dL (0.2-1.0); Cholesterol 110 mg/dL (< 200); HDL Cholesterol 57 mg/dL (40-59); LDL Cholesterol 55 mg/dL (< 100); Total Protein 5.7 g/dL (6.4-8.2); Triglycerides 70 mg/dL (< 150)
[2017-12-07 09:00] VITALS: BP 130/100
[2017-12-07] MEDS: cefTRIAXone 1GM/10ml IVPUSH 10 ML IV SCH (09:10)
[2017-12-07] MEDS: FUROSEMIDE 40 MG/4 ML VIAL IV SCH (09:10)
[2017-12-07] MEDS: ENOXAPARIN SOD 40 MG/0.4 ML SYRINGE SC SCH (09:11)
[2017-12-07] MEDS: CARVEDILOL 12.5 MG TAB PO SCH ×2 (09:47→22:13)
[2017-12-07] MEDS: SPIRONOLACTONE 25 MG TAB PO SCH (09:47)
[2017-12-07] MEDS: ASPirin 81 mg TAB PO SCH (09:47)
[2017-12-07] MEDS: ENALAPRIL MALEATE 2.5 MG TAB PO SCH (09:48)
[2017-12-07] MEDS: PANTOPRAZOLE 40 MG TAB PO SCH (09:48)
[2017-12-07] MEDS: INSULIN LANTUS (GLARGINE) 1 /0.01ml (100units/ml) SC SCH ×2 (09:48→22:14)
[2017-12-07] MEDS: NITROGLYCERIN 0.2MG/HR TOPICAL PATCH TD SCH (09:49)
[2017-12-07] MEDS ORDERED: POTASSIUM CHL 20 Meq TABLET PO SCH (10:00)
[2017-12-07 12:00] VITALS: BP 138/104
[2017-12-07 16:29] VITALS: BP 134/107
[2017-12-07] MEDS ORDERED: SPIRONOLACTONE 25 MG TAB PO SCH (18:00)
[2017-12-07 22:00] VITALS: BP 119/87
[2017-12-08] MEDS: ACCU-CHEK COMFORT CURVE STRIP VI SCH ×4 (00:29→17:03)
[2017-12-08] MEDS: InsuLIN REG 1unit/0.01ml Soln (100units/ml) SC SCH ×4 (00:29→17:07)
[2017-12-08] MEDS: MORPHINE SULFATE 4 MG/ML SYR/VIAL IV PRN ×4 (02:58→21:04)
[2017-12-08 05:12] VITALS: BP 102/80
[2017-12-08] MEDS: SODIUM CHLOR 0.9% PF (SALINE LOCK) 10ML VIAL/SYR IV SCH ×3 (06:25→21:53)
[2017-12-08] MEDS: GABAPENTIN 300 MG CAP PO SCH ×2 (06:27→17:03)
[2017-12-08 06:49] LABS: Hematocrit 40.8 % (36.0-46.0); Hemoglobin 13.5 g/dL (12.2-16.2); Mean Corpuscular Volume 84.9 fL (80.0-100.0); Platelet Count (auto) 116 10^3/uL (140-450); Red Blood Cells 4.81 10^6/uL (4.0-5.20); Red Cell Distribution Width 15.1 % (11.8-14.3)
[2017-12-08 07:01] LABS: Band Neutrophils % (manual) 0; Basophils % (manual) 0 (0.0-2.0); Blast Cells 0; Eosinophils % (manual) 0 (0-7); Metamyelocytes % 0; Myelocytes % 0; Promyelocytes % 0
[2017-12-08 07:16] LABS: Albumin 2.2 g/dL (3.4-5.0); BUN/Creatinine Ratio 13.7; Bilirubin, Direct 0.6 mg/dL (0-0.2); Bilirubin, Total 0.9 mg/dL (0.2-1.0); Calcium 7.9 mg/dL (8.5-10.1); Magnesium 1.6 mg/dL (1.6-2.6); Total Protein 6.1 g/dL (6.4-8.2)
[2017-12-08 07:52] LABS: Lymphocytes % (manual) 64 (10.0-50.0); Monocytes % (manual) 4 (0-12); Reactive Lymphocytes 1
[2017-12-08] MEDS: PANTOPRAZOLE 40 MG TAB PO SCH (08:36)
[2017-12-08] MEDS: ASPirin 81 mg TAB PO SCH (08:36)
[2017-12-08] MEDS: CARVEDILOL 12.5 MG TAB PO SCH ×2 (08:36→21:54)
[2017-12-08] MEDS: cefTRIAXone 1GM/10ml IVPUSH 10 ML IV SCH (08:37)
[2017-12-08] MEDS: SPIRONOLACTONE 25 MG TAB PO SCH (08:37)
[2017-12-08] MEDS: ENOXAPARIN SOD 40 MG/0.4 ML SYRINGE SC SCH (08:37)
[2017-12-08] MEDS: FUROSEMIDE 40 MG/4 ML VIAL IV SCH (08:37)
[2017-12-08] MEDS: INSULIN LANTUS (GLARGINE) 1 /0.01ml (100units/ml) SC SCH ×2 (08:38→21:54)
[2017-12-08 09:00] VITALS: BP 111/81
[2017-12-08] MEDS: ENALAPRIL MALEATE 2.5 MG TAB PO SCH (10:00)
[2017-12-08 13:00] VITALS: BP 104/73
[2017-12-08 17:00] VITALS: BP 127/83
[2017-12-08 22:00] VITALS: BP 114/90
[2017-12-09] MEDS: ACCU-CHEK COMFORT CURVE STRIP VI SCH ×4 (00:15→18:52)
[2017-12-09] MEDS: InsuLIN REG 1unit/0.01ml Soln (100units/ml) SC SCH ×4 (00:16→18:52)
[2017-12-09] MEDS: MORPHINE SULFATE 4 MG/ML SYR/VIAL IV PRN ×3 (01:35→11:28)
[2017-12-09 05:26] VITALS: BP 102/72
[2017-12-09 06:43] LABS: Hematocrit 42.5 % (36.0-46.0); Hemoglobin 13.9 g/dL (12.2-16.2); Mean Corpuscular Hemoglobin 27.8 pg (28.0-32.0); Mean Corpuscular Hgb Conc. 32.6 g/dL (32.0-36.0); Mean Corpuscular Volume 85.3 fL (80.0-100.0); Platelet Count (auto) 126 10^3/uL (140-450); Red Blood Cells 4.99 10^6/uL (4.0-5.20); Red Cell Distribution Width 14.8 % (11.8-14.3); White Blood Cell 4.6 10^3/uL (4.4-10.8)
[2017-12-09] MEDS: SODIUM CHLOR 0.9% PF (SALINE LOCK) 10ML VIAL/SYR IV SCH ×2 (06:44→14:35)
[2017-12-09] MEDS: GABAPENTIN 300 MG CAP PO SCH ×2 (06:45→18:52)
[2017-12-09 06:52] LABS: Band Neutrophils % (manual) 0; Basophils % (manual) 0 (0.0-2.0); Blast Cells 0; Metamyelocytes % 0; Myelocytes % 0; Promyelocytes % 0; Reactive Lymphocytes 0
[2017-12-09 07:02] LABS: BUN/Creatinine Ratio 14.3; Calcium 7.5 mg/dL (8.5-10.1); Magnesium 1.8 mg/dL (1.6-2.6); Potassium 4.1 mmol/L (3.5-5.1)
[2017-12-09 07:25] LABS: Eosinophils % (manual) 2 (0-7); Lymphocytes % (manual) 75 (10.0-50.0); Monocytes % (manual) 5 (0-12)
[2017-12-09 09:00] VITALS: BP 112/88
[2017-12-09] MEDS: cefTRIAXone 1GM/10ml IVPUSH 10 ML IV SCH (09:46)
[2017-12-09] MEDS: FUROSEMIDE 40 MG/4 ML VIAL IV SCH (09:46)
[2017-12-09] MEDS: ASPirin 81 mg TAB PO SCH (09:47)
[2017-12-09] MEDS: ENALAPRIL MALEATE 2.5 MG TAB PO SCH (09:47)
[2017-12-09] MEDS: PANTOPRAZOLE 40 MG TAB PO SCH (09:47)
[2017-12-09] MEDS: CARVEDILOL 12.5 MG TAB PO SCH (09:48)
[2017-12-09] MEDS: ENOXAPARIN SOD 40 MG/0.4 ML SYRINGE SC SCH (09:48)
[2017-12-09] MEDS: INSULIN LANTUS (GLARGINE) 1 /0.01ml (100units/ml) SC SCH (09:48)
[2017-12-09] MEDS: SPIRONOLACTONE 25 MG TAB PO SCH (09:55)
[2017-12-09 13:04] VITALS: BP 114/80
[2017-12-09 17:00] VITALS: BP 120/81
== END 2017-12-09 21:00 | disposition home or self-care (01) ==
LOC: EDBD 09:33 → ER 09:34 → TELE 09:35 → TELE-CENTR 16:50
PROVIDERS: ADMIT Internal Medicine; ATTEND Internal Medicine
DX: K80.12 Calculus of gallbladder with acute and chronic cholecystitis without obstruction (principal); E11.42 Type 2 diabetes mellitus with diabetic polyneuropathy; D69.6 Thrombocytopenia, unspecified; I08.1 Rheumatic disorders of both mitral and tricuspid valves; I11.0 Hypertensive heart disease with heart failure; I50.82 Biventricular heart failure; I42.0 Dilated cardiomyopathy; N39.0 Urinary tract infection, site not specified; F15.90 Other stimulant use, unspecified, uncomplicated; E78.5 Hyperlipidemia, unspecified; F17.210 Nicotine dependence, cigarettes, uncomplicated; F32.9 Major depressive disorder, single episode, unspecified; I50.20 Unspecified systolic (congestive) heart failure; R11.14 Bilious vomiting; F41.9 Anxiety disorder, unspecified; G89.4 Chronic pain syndrome; H53.8 Other visual disturbances; E66.9 Obesity, unspecified; K76.0 Fatty (change of) liver, not elsewhere classified; Z82.49 Family history of ischemic heart disease and other diseases of the circulatory system; Z91.012 Allergy to eggs; Z87.442 Personal history of urinary calculi; Z90.49 Acquired absence of other specified parts of digestive tract; Z68.28 Body mass index [BMI] 28.0-28.9, adult
CPT/HCPCS: 36415; 71045; 74177; 76705; 78226; 80048; 80053; 80061; 80076; 80307; 81001; 81025; 82140; 82150; 82550; 82962; 83036; 83690; 83735; 83880; 84484; 85007; 85025; 85027; 85379; 85610; 85652; 85730; 86141; 86850; 86900; 86901; 87081; 87086; 93005; 94761; 96374; 96375; C9113; J0696; J1815; J2405

== ENCOUNTER 2017-12-26 04:41 | Inpatient (IN) | payer MEDICAID ==
[~2017-12-26] VITALS: Ht 167.6 cm; Wt 76.1 kg
[2017-12-26 07:27] LABS: Basophils # (auto) 0 uL; Basophils % (auto) 0.4 % (0.0-2.0); Eosinophils # (auto) 0.1 uL; Eosinophils % (auto) 1.2 % (0.0-7.0); Hematocrit 45.9 % (36.0-46.0); Hemoglobin 14.9 g/dL (12.2-16.2); Lymphocytes # (auto) 2.8 uL; Mean Corpuscular Hemoglobin 27.1 pg (28.0-32.0); Mean Corpuscular Hgb Conc. 32.5 g/dL (32.0-36.0); Mean Corpuscular Volume 83.3 fL (80.0-100.0); Monocytes # (auto) 0.6 uL; Monocytes % (auto) 10.8 % (0.0-12.0); Neutrophils # (auto) 2.4 uL; Neutrophils % (auto) 40.6 % (37.0-80.0); Nucleated Red Blood Cells % 0.1 %; Platelet Count (auto) 180 10^3/uL (140-450); Red Blood Cells 5.51 10^6/uL (4.0-5.20); Red Cell Distribution Width 15.7 % (11.8-14.3); White Blood Cell 5.9 10^3/uL (4.4-10.8)
[2017-12-26] MEDS ORDERED: SODIUM CHLORIDE 0.9% 1,000 ML IVB ONE (07:35)
[2017-12-26 07:39] LABS: Urine Bacteria NONE SEEN /hpf (None Seen); Urine Blood Negative /uL (Negative); Urine Hyaline Cast FEW /lpf (0 - 2); Urine WBC 2 /hpf (0 - 5)
[2017-12-26] MEDS ORDERED: METOCLOPRAMIDE HCL 5MG/ml INJ 2ml VIAL IV ONE (07:45)
[2017-12-26] MEDS ORDERED: MORPHINE SULFATE 4 MG/ML SYR/VIAL IV ONE (07:45)
[2017-12-26 07:54] LABS: Albumin 2.7 g/dL (3.4-5.0); BUN/Creatinine Ratio 12.1; Calcium 8.3 mg/dL (8.5-10.1); Potassium 4.5 mmol/L (3.5-5.1)
[2017-12-26 08:01] LABS: Bilirubin, Total 1.1 mg/dL (0.2-1.0); Total Protein 7.3 g/dL (6.4-8.2)
[2017-12-26] MEDS ORDERED: PANTOPRAZOLE 40 MG/10 ML VIAL IV ONE (10:15)
[2017-12-26] MEDS ORDERED: LORazepam 2MG/ML-1ML VIAL IV PRN (10:15)
[2017-12-26] MEDS ORDERED: MORPHINE SULFATE 4 MG/ML SYR/VIAL IV PRN (10:15)
[2017-12-26] MEDS ORDERED: cefTRIAXone 1GM/10ml IVPUSH 10 ML IV ONE (10:15)
[2017-12-26] MEDS ORDERED: NITROGLYCERIN 0.4 MG SL TAB SL PRN (10:15)
[2017-12-26] MEDS ORDERED: DEXTROSE (50%) 50ML SYRG IV PRN (10:15)
[2017-12-26] MEDS ORDERED: InsuLIN REG 1unit/0.01ml Soln (100units/ml) IV ONE (10:15)
[2017-12-26] MEDS: metroNIDAZOLE 500MG/100ML 100 ML IV SCH ×3 (11:39→23:45)
[2017-12-26] MEDS: MORPHINE SULFATE 4 MG/ML SYR/VIAL IV PRN ×3 (12:23→23:44)
[2017-12-26 12:30] VITALS: BP 130/105
[2017-12-26] MEDS: InsuLIN REG 1unit/0.01ml Soln (100units/ml) SC SCH ×2 (13:34→17:49)
[2017-12-26] MEDS: ACCU-CHEK COMFORT CURVE STRIP VI SCH ×3 (13:34→23:44)
[2017-12-26 16:53] VITALS: BP 130/103
[2017-12-26 21:38] VITALS: BP 136/69
[2017-12-27] MEDS: InsuLIN REG 1unit/0.01ml Soln (100units/ml) SC SCH ×4 (02:35→17:24)
[2017-12-27] MEDS ORDERED: diphenhdrAMINE HCL 25 MG CAP PO ONE (02:45)
[2017-12-27] MEDS: MORPHINE SULFATE 4 MG/ML SYR/VIAL IV PRN ×5 (03:16→22:11)
[2017-12-27 04:41] VITALS: BP 141/95
[2017-12-27] MEDS: metroNIDAZOLE 500MG/100ML 100 ML IV SCH ×3 (05:47→17:01)
[2017-12-27] MEDS: ACCU-CHEK COMFORT CURVE STRIP VI SCH ×3 (05:48→17:24)
[2017-12-27 07:30] LABS: Basophils # (auto) 0 uL; Basophils % (auto) 0.4 % (0.0-2.0); Eosinophils # (auto) 0.1 uL; Eosinophils % (auto) 1.2 % (0.0-7.0); Hematocrit 45.2 % (36.0-46.0); Hemoglobin 14.7 g/dL (12.2-16.2); Lymphocytes # (auto) 2.9 uL; Lymphocytes % (auto) 47.2 % (10.0-50.0); Mean Corpuscular Hemoglobin 27.7 pg (28.0-32.0); Mean Corpuscular Hgb Conc. 32.6 g/dL (32.0-36.0); Mean Corpuscular Volume 85.1 fL (80.0-100.0); Monocytes # (auto) 0.7 uL; Monocytes % (auto) 11.2 % (0.0-12.0); Neutrophils # (auto) 2.4 uL; Nucleated Red Blood Cells % 0.1 %; Platelet Count (auto) 166 10^3/uL (140-450); Red Blood Cells 5.31 10^6/uL (4.0-5.20); Red Cell Distribution Width 15.8 % (11.8-14.3); White Blood Cell 6.1 10^3/uL (4.4-10.8)
[2017-12-27 07:34] LABS: Albumin 2.3 g/dL (3.4-5.0); BUN/Creatinine Ratio 17.6; Calcium 8.2 mg/dL (8.5-10.1)
[2017-12-27 07:36] LABS: Total Protein 6.4 g/dL (6.4-8.2)
[2017-12-27 08:00] VITALS: BP 128/98
[2017-12-27 08:03] VITALS: BP 128/98
[2017-12-27] MEDS: PANTOPRAZOLE 40 MG/10 ML VIAL IV SCH (09:50)
[2017-12-27] MEDS: cefTRIAXone 1GM/10ml IVPUSH 10 ML IV SCH (09:51)
[2017-12-27 11:38] VITALS: BP 137/96
[2017-12-27] MEDS: diphenhdrAMINE HCL 25 MG CAP PO PRN (14:12)
[2017-12-27] MEDS ORDERED: CIPR-173 PO (14:29)
[2017-12-27] MEDS ORDERED: CITA-244 PO (14:29)
[2017-12-27] MEDS ORDERED: CEPH500C PO (14:29)
[2017-12-27] MEDS ORDERED: METF-370 PO (14:29)
[2017-12-27] MEDS ORDERED: FURO40TA4 PO (14:29)
[2017-12-27] MEDS ORDERED: FLUC100T34 PO (14:29)
[2017-12-27] MEDS ORDERED: POTA10TA51 PO (14:29)
[2017-12-27] MEDS ORDERED: CARV12.544 PO (14:29)
[2017-12-27 14:54] LABS: INR 1.07 (0.9-1.15); Prothrombin Time 11.4 sec (9.27-12.13)
[2017-12-27 16:35] VITALS: BP 139/102
[2017-12-27 22:00] VITALS: BP 143/106
[2017-12-28] MEDS: diphenhdrAMINE HCL 25 MG CAP PO PRN ×3 (00:07→21:31)
[2017-12-28] MEDS: metroNIDAZOLE 500MG/100ML 100 ML IV SCH ×5 (00:07→23:35)
[2017-12-28] MEDS: InsuLIN REG 1unit/0.01ml Soln (100units/ml) SC SCH ×5 (00:19→23:36)
[2017-12-28] MEDS: ACCU-CHEK COMFORT CURVE STRIP VI SCH ×5 (00:19→23:36)
[2017-12-28] MEDS: MORPHINE SULFATE 4 MG/ML SYR/VIAL IV PRN ×4 (04:48→21:31)
[2017-12-28 05:00] VITALS: BP 128/95
[2017-12-28 07:18] LABS: Basophils # (auto) 0 uL; Basophils % (auto) 0.6 % (0.0-2.0); Eosinophils # (auto) 0.1 uL; Eosinophils % (auto) 1.1 % (0.0-7.0); Hematocrit 42.3 % (36.0-46.0); Hemoglobin 14.1 g/dL (12.2-16.2); Lymphocytes # (auto) 2.7 uL; Lymphocytes % (auto) 44.6 % (10.0-50.0); Mean Corpuscular Hgb Conc. 33.3 g/dL (32.0-36.0); Mean Corpuscular Volume 84.2 fL (80.0-100.0); Monocytes # (auto) 0.5 uL; Monocytes % (auto) 8.7 % (0.0-12.0); Neutrophils # (auto) 2.7 uL; Nucleated Red Blood Cells % 0.2 %; Platelet Count (auto) 145 10^3/uL (140-450); Red Blood Cells 5.03 10^6/uL (4.0-5.20); Red Cell Distribution Width 15.8 % (11.8-14.3); White Blood Cell 6.1 10^3/uL (4.4-10.8)
[2017-12-28 07:29] LABS: BUN/Creatinine Ratio 12.4; Calcium 8.2 mg/dL (8.5-10.1); Potassium 4.3 mmol/L (3.5-5.1)
[2017-12-28 08:00] VITALS: BP 135/107
[2017-12-28] MEDS: cefTRIAXone 1GM/10ml IVPUSH 10 ML IV SCH (08:14)
[2017-12-28 09:00] VITALS: BP 135/107
[2017-12-28] MEDS: PANTOPRAZOLE 40 MG/10 ML VIAL IV SCH (10:10)
[2017-12-28] MEDS ORDERED: CARVEDILOL 3.125 MG TAB PO ONE (12:30)
[2017-12-28 13:00] VITALS: BP 130/99
[2017-12-28 17:00] VITALS: BP 108/76
[2017-12-28] MEDS: CARVEDILOL 3.125 MG TAB PO SCH (21:31)
[2017-12-28 22:00] VITALS: BP 128/95
[2017-12-29] MEDS: MORPHINE SULFATE 4 MG/ML SYR/VIAL IV PRN ×4 (02:01→15:16)
[2017-12-29 05:00] VITALS: BP 122/87
[2017-12-29] MEDS: diphenhdrAMINE HCL 25 MG CAP PO PRN (05:27)
[2017-12-29] MEDS: InsuLIN REG 1unit/0.01ml Soln (100units/ml) SC SCH ×2 (05:37→12:20)
[2017-12-29] MEDS: ACCU-CHEK COMFORT CURVE STRIP VI SCH ×2 (05:37→12:19)
[2017-12-29] MEDS: metroNIDAZOLE 500MG/100ML 100 ML IV SCH ×2 (05:38→11:58)
[2017-12-29 06:08] LABS: Basophils # (auto) 0 uL; Basophils % (auto) 0.5 % (0.0-2.0); Eosinophils # (auto) 0.1 uL; Eosinophils % (auto) 1.4 % (0.0-7.0); Hematocrit 42.4 % (36.0-46.0); Hemoglobin 14.1 g/dL (12.2-16.2); Lymphocytes # (auto) 2.8 uL; Lymphocytes % (auto) 49.2 % (10.0-50.0); Mean Corpuscular Hemoglobin 28.1 pg (28.0-32.0); Mean Corpuscular Hgb Conc. 33.3 g/dL (32.0-36.0); Mean Corpuscular Volume 84.6 fL (80.0-100.0); Monocytes # (auto) 0.7 uL; Monocytes % (auto) 13.2 % (0.0-12.0); Neutrophils % (auto) 35.7 % (37.0-80.0); Nucleated Red Blood Cells % 0.2 %; Platelet Count (auto) 144 10^3/uL (140-450); Red Blood Cells 5.01 10^6/uL (4.0-5.20); Red Cell Distribution Width 15.8 % (11.8-14.3); White Blood Cell 5.6 10^3/uL (4.4-10.8)
[2017-12-29 06:24] LABS: BUN/Creatinine Ratio 13.7; Calcium 7.8 mg/dL (8.5-10.1); Potassium 4.6 mmol/L (3.5-5.1)
[2017-12-29 08:30] VITALS: BP 122/86
[2017-12-29] MEDS ORDERED: cefTRIAXone 1GM/50ML D5W 50 ML IV SCH (09:00)
[2017-12-29] MEDS: PANTOPRAZOLE 40 MG/10 ML VIAL IV SCH (09:07)
[2017-12-29] MEDS: CARVEDILOL 3.125 MG TAB PO SCH (09:09)
[2017-12-29 12:30] VITALS: BP 126/89
[2017-12-29] MEDS ORDERED: CAR3125T PO (13:21)
[2017-12-29 13:46] VITALS: BP 126/89
== END 2017-12-29 16:10 | disposition home or self-care (01) ==
LOC: EDBD 04:41 → ER 04:45 → TELE 04:46 → TELE-WESTW 10:36
PROVIDERS: ADMIT Internal Medicine; ATTEND Internal Medicine
DX: K80.20 Calculus of gallbladder without cholecystitis without obstruction (principal); E44.0 Moderate protein-calorie malnutrition; I11.0 Hypertensive heart disease with heart failure; I50.20 Unspecified systolic (congestive) heart failure; I08.1 Rheumatic disorders of both mitral and tricuspid valves; I42.7 Cardiomyopathy due to drug and external agent; E11.65 Type 2 diabetes mellitus with hyperglycemia; F15.10 Other stimulant abuse, uncomplicated; F17.210 Nicotine dependence, cigarettes, uncomplicated; F41.9 Anxiety disorder, unspecified; Z82.49 Family history of ischemic heart disease and other diseases of the circulatory system; Z87.442 Personal history of urinary calculi; Z90.49 Acquired absence of other specified parts of digestive tract; Z91.012 Allergy to eggs; Z79.899 Other long term (current) drug therapy; Z68.27 Body mass index [BMI] 27.0-27.9, adult
CPT/HCPCS: 36415; 71046; 76705; 80048; 80053; 81001; 82010; 82150; 82962; 83036; 83690; 83735; 84443; 84702; 85025; 85610; 87081; 93005; 93306; 96361; 96374; 96375; C9113; J0696; J1815; J3490

== ENCOUNTER 2018-01-07 18:42 | Inpatient (IN) | payer MEDICAID ==
[~2018-01-07] VITALS: Ht 172.7 cm; Wt 84.0 kg
[~2018-01-07 18:42] MED LIST changes: -ATOR20TA50 PO; +CAR3125T PO; -CARV6.25 PO; +CITA-244 PO; -CITA10TA70 PO; -GABA-339 PO; -GABA300C10 PO; -SPIR25TA88 PO
[2018-01-07 19:34] LABS: Hematocrit 49.9 % (36.0-46.0); Mean Corpuscular Hemoglobin 27.4 pg (28.0-32.0); Mean Corpuscular Hgb Conc. 32.1 g/dL (32.0-36.0); Mean Corpuscular Volume 85.3 fL (80.0-100.0); Platelet Count (auto) 172 10^3/uL (140-450); Red Blood Cells 5.85 10^6/uL (4.0-5.20); Red Cell Distribution Width 16.8 % (11.8-14.3); White Blood Cell 7.2 10^3/uL (4.4-10.8)
[2018-01-07 19:40] LABS: Band Neutrophils % (manual) 0; Basophils % (manual) 0 (0.0-2.0); Blast Cells 0; Metamyelocytes % 0; Myelocytes % 0; Promyelocytes % 0; Reactive Lymphocytes 0
[2018-01-07 19:51] LABS: BUN/Creatinine Ratio 19.3; Calcium 8.4 mg/dL (8.5-10.1); Potassium 5.4 mmol/L (3.5-5.1)
[2018-01-07 19:54] LABS: Lactic Acid w/Reflex 2.1 mmol/L (0.4-2.0)
[2018-01-07 20:23] LABS: Albumin 2.5 g/dL (3.4-5.0)
[2018-01-07 20:25] LABS: Bilirubin, Total 1.4 mg/dL (0.2-1.0); Total Protein 7.2 g/dL (6.4-8.2)
[2018-01-07 20:36] LABS: Eosinophils % (manual) 1 (0-7); Lymphocytes % (manual) 59 (10.0-50.0); Monocytes % (manual) 11 (0-12)
[2018-01-07] MEDS ORDERED: SODIUM CHLORIDE 0.9% 1,000 ML IV ONE (21:15)
[2018-01-07] MEDS ORDERED: ONDANSETRON HCL 4 MG/2 ML VIAL IV ONE (21:15)
[2018-01-07] MEDS ORDERED: MORPHINE SULFATE 4 MG/ML SYR/VIAL IV ONE (21:15)
[2018-01-07] MEDS ORDERED: metroNIDAZOLE 500MG/100ML 100 ML IV ONE (21:15)
[2018-01-07] MEDS ORDERED: cefTRIAXone 1GM/50ML D5W 50 ML IV ONE (21:15)
[2018-01-07 21:28] LABS: Urine Bacteria FEW /hpf (None Seen); Urine Blood 1+ /uL (Negative); Urine Hyaline Cast FEW /lpf (0 - 2); Urine Mucus FEW (None Seen); Urine WBC 4 /hpf (0 - 5)
[2018-01-07 21:41] LABS: Potassium 4.7 mmol/L (3.5-5.1)
[2018-01-07 21:45] LABS: Alcohol, Urine < 3.0 mg/dL (0-5); Amphetamine Screen, Urine NEGATIVE (NEGATIVE); Barbiturate Scree,Urine NEGATIVE (NEGATIVE); Benzodiazephine Screen, Urine NEGATIVE (NEGATIVE); Cannabinoid Screen, Urine POSITIVE (NEGATIVE); Cocaine Screen, Urine NEGATIVE (NEGATIVE); Phencyclidine Screen, Urine NEGATIVE (NEGATIVE)
[2018-01-07 21:59] LABS: Opiate Scree,Urine POSITIVE (NEGATIVE)
[2018-01-08] VITALS (7 sets, daily range): BP systolic 103–133; BP diastolic 70–94
[2018-01-08] MEDS ORDERED: MORPHINE SULFATE 4 MG/ML SYR/VIAL IV PRN (00:30)
[2018-01-08] MEDS ORDERED: TEMAZEPAM 15 MG CAP PO PRN (00:30)
[2018-01-08] MEDS ORDERED: ACETAMINOPHEN 325 MG TAB PO PRN (00:30)
[2018-01-08] MEDS ORDERED: NITROGLYCERIN 0.4 MG SL TAB SL PRN (00:30)
[2018-01-08] MEDS ORDERED: FUROSEMIDE 20 MG/2 ML VIAL IV ONE (00:30)
[2018-01-08] MEDS ORDERED: ONDANSETRON HCL 4 MG/2 ML VIAL IV PRN (00:30)
[2018-01-08] MEDS ORDERED: DEXTROSE (50%) 50ML SYRG IV PRN (00:30)
[2018-01-08] MEDS ORDERED: PANTOPRAZOLE 40 MG/10 ML VIAL IV ONE (00:30)
[2018-01-08] MEDS: metroNIDAZOLE 500MG/100ML 100 ML IV SCH ×3 (05:20→22:45)
[2018-01-08] MEDS: ACCU-CHEK COMFORT CURVE STRIP VI SCH ×3 (05:21→18:16)
[2018-01-08] MEDS: MORPHINE SULFATE 4 MG/ML SYR/VIAL IV PRN ×4 (05:22→22:45)
[2018-01-08] MEDS: InsuLIN REG 1unit/0.01ml Soln (100units/ml) SC SCH ×3 (05:44→18:16)
[2018-01-08] MEDS ORDERED: FUROSEMIDE 20 MG/2 ML VIAL IV SCH (06:00)
[2018-01-08] MEDS: CARVEDILOL 3.125 MG TAB PO SCH ×2 (08:26→18:15)
[2018-01-08] MEDS: ASPirin 81 mg TAB PO SCH (09:47)
[2018-01-08] MEDS ORDERED: PANTOPRAZOLE 40 MG/10 ML VIAL IV SCH (10:00)
[2018-01-08] MEDS ORDERED: hydrOXYzine HCL 10 MG TAB PO PRN (15:00)
[2018-01-08] MEDS: FUROSEMIDE 20 MG/2 ML VIAL IV SCH (18:15)
[2018-01-08] MEDS: HYDROcodone-ACET 5/325MG TAB PO PRN (20:59)
[2018-01-08] MEDS ORDERED: cefTRIAXone 1GM/50ML D5W 50 ML IV SCH (21:00)
[2018-01-09] MEDS: MORPHINE SULFATE 4 MG/ML SYR/VIAL IV PRN ×3 (02:54→14:13)
[2018-01-09] MEDS: InsuLIN REG 1unit/0.01ml Soln (100units/ml) SC SCH ×4 (05:18→18:15)
[2018-01-09 05:33] VITALS: BP 111/77
[2018-01-09] MEDS: ACCU-CHEK COMFORT CURVE STRIP VI SCH ×4 (05:38→18:14)
[2018-01-09] MEDS: FUROSEMIDE 20 MG/2 ML VIAL IV SCH ×2 (05:38→18:00)
[2018-01-09] MEDS: metroNIDAZOLE 500MG/100ML 100 ML IV SCH ×2 (05:38→14:19)
[2018-01-09 05:42] LABS: Hemoglobin 14.1 g/dL (12.2-16.2); Mean Corpuscular Hemoglobin 27.3 pg (28.0-32.0); Mean Corpuscular Hgb Conc. 31.9 g/dL (32.0-36.0); Mean Corpuscular Volume 85.3 fL (80.0-100.0); Platelet Count (auto) 144 10^3/uL (140-450); Red Blood Cells 5.16 10^6/uL (4.0-5.20); Red Cell Distribution Width 16.9 % (11.8-14.3); White Blood Cell 4.7 10^3/uL (4.4-10.8)
[2018-01-09 05:47] LABS: Basophils % (manual) 0 (0.0-2.0); Blast Cells 0; Eosinophils % (manual) 0 (0-7); Metamyelocytes % 0; Myelocytes % 0; Promyelocytes % 0; Reactive Lymphocytes 0
[2018-01-09 06:03] LABS: Potassium 4.5 mmol/L (3.5-5.1)
[2018-01-09 06:19] LABS: BUN/Creatinine Ratio 17.1; Bilirubin, Total 0.8 mg/dL (0.2-1.0); Calcium 7.4 mg/dL (8.5-10.1); Total Protein 5.9 g/dL (6.4-8.2)
[2018-01-09 06:22] LABS: Band Neutrophils % (manual) 1
[2018-01-09 06:23] LABS: Lymphocytes % (manual) 63 (10.0-50.0); Monocytes % (manual) 10 (0-12)
[2018-01-09] MEDS: CARVEDILOL 3.125 MG TAB PO SCH ×2 (08:16→18:14)
[2018-01-09] MEDS: ASPirin 81 mg TAB PO SCH (08:49)
[2018-01-09 08:53] VITALS: BP 118/73
[2018-01-09 13:18] VITALS: BP 107/80
[2018-01-09 17:26] VITALS: BP 121/71
[2018-01-09 17:31] VITALS: BP 107/80
[2018-01-09] MEDS: HYDROcodone-ACET 5/325MG TAB PO PRN (19:45)
== END 2018-01-09 20:20 | disposition home or self-care (01) ==
LOC: EDBD 18:42 → ER 18:49 → TELE 18:50 → TELE-WESTW 01-08 01:55
PROVIDERS: ADMIT Nurse Practitioner; ATTEND Hospitalist
DX: K80.12 Calculus of gallbladder with acute and chronic cholecystitis without obstruction (principal); I50.43 Acute on chronic combined systolic (congestive) and diastolic (congestive) heart failure; I42.0 Dilated cardiomyopathy; E87.5 Hyperkalemia; K72.90 Hepatic failure, unspecified without coma; I11.0 Hypertensive heart disease with heart failure; I50.82 Biventricular heart failure; E11.9 Type 2 diabetes mellitus without complications; F17.210 Nicotine dependence, cigarettes, uncomplicated; N28.9 Disorder of kidney and ureter, unspecified; Z87.442 Personal history of urinary calculi; Z86.19 Personal history of other infectious and parasitic diseases; Z91.012 Allergy to eggs; Z90.49 Acquired absence of other specified parts of digestive tract
CPT/HCPCS: 36415; 71045; 76705; 80048; 80053; 80076; 80307; 81001; 82150; 82962; 83605; 83690; 83880; 84132; 84484; 84702; 85007; 85027; 85379; 87040; 87081; 93005; 96365; 96375; 96376; C9113; G0378; J0696; J1815; J2405; J3490

== ENCOUNTER 2018-08-19 07:54 | Emergency (ER) | payer MEDICAID ==
[~2018-08-19] VITALS: Ht 167.6 cm; Wt 75.7 kg
[2018-08-19 10:13] LABS: Basophils # (auto) 0 uL; Basophils % (auto) 0.1 % (0.0-2.0); Eosinophils # (auto) 0 uL; Hematocrit 42.2 % (36.0-46.0); Hemoglobin 13.7 g/dL (12.2-16.2); Lymphocytes # (auto) 0.5 uL; Lymphocytes % (auto) 3.3 % (10.0-50.0); Mean Corpuscular Hemoglobin 28.7 pg (28.0-32.0); Mean Corpuscular Hgb Conc. 32.6 g/dL (32.0-36.0); Mean Corpuscular Volume 88.2 fL (80.0-100.0); Monocytes # (auto) 1.1 uL; Monocytes % (auto) 7.6 % (0.0-12.0); Neutrophils # (auto) 13.4 uL; Nucleated Red Blood Cells % 0.1 %; Platelet Count (auto) 203 10^3/uL (140-450); Red Blood Cells 4.78 10^6/uL (4.0-5.20); Red Cell Distribution Width 12.3 % (11.8-14.3); White Blood Cell 15.1 10^3/uL (4.4-10.8)
[2018-08-19 10:26] LABS: Potassium 4.4 mmol/L (3.5-5.1)
[2018-08-19 10:35] LABS: Albumin 2.6 g/dL (3.4-5.0); Bilirubin, Total 0.8 mg/dL (0.2-1.0); Calcium 9.3 mg/dL (8.5-10.1); Total Protein 7.9 g/dL (6.4-8.2)
[2018-08-19] MEDS ORDERED: SODIUM CHLORIDE 0.9% 1,000 ML IV ONE ×2 (12:59)
[2018-08-19] MEDS ORDERED: InsuLIN REG 1unit/0.01ml Soln (100units/ml) IV ONE (13:00)
[2018-08-19] MEDS ORDERED: cefTRIAXone 1GM/50ML D5W 50 ML IV ONE (13:00)
[2018-08-19] MEDS ORDERED: KETOROLAC TROMETH 30 MG/ML 1ML VIAL IV ONE (13:30)
[2018-08-19 13:45] VITALS: BP 135/95
== END 2018-08-19 14:28 | disposition short-term general hospital (02) ==
LOC: ER 07:56
DX: M72.6 Necrotizing fasciitis (principal); M27.2 Inflammatory conditions of jaws; E11.9 Type 2 diabetes mellitus without complications; I11.0 Hypertensive heart disease with heart failure; F17.210 Nicotine dependence, cigarettes, uncomplicated; I50.9 Heart failure, unspecified; F12.90 Cannabis use, unspecified, uncomplicated; Z91.012 Allergy to eggs; Z79.82 Long term (current) use of aspirin; Z79.4 Long term (current) use of insulin; Z79.899 Other long term (current) drug therapy; Z87.442 Personal history of urinary calculi; Z90.49 Acquired absence of other specified parts of digestive tract
CPT/HCPCS: 36415; 70490; 80053; 82962; 83605; 85025; 87040; 96365; 96375; 99285; J0696; J1815; J1885; J7030

== ENCOUNTER 2021-01-25 07:06 | Inpatient (IN) | payer MEDICAID ==
[~2021-01-25] VITALS: Ht 167.6 cm; Wt 89.1 kg
[2021-01-25] MEDS ORDERED: FUROSEMIDE 40 MG/4 ML VIAL IV ONE (07:30)
[2021-01-25 07:48] LABS: Basophils # (auto) 0 10 ^3/uL (0-0.2); Basophils % (auto) 0.8 % (0.0-2.0); Eosinophils # (auto) 0.1 10 ^3/uL (0-0.8); Eosinophils % (auto) 1.8 % (0.0-7.0); Hematocrit 37.4 % (36.0-46.0); Lymphocytes # (auto) 2.7 10 ^3/uL (0.4-5.4); Lymphocytes % (auto) 46.4 % (10.0-50.0); Mean Corpuscular Hemoglobin 28.1 pg (28.0-32.0); Mean Corpuscular Hgb Conc. 32.1 g/dL (32.0-36.0); Mean Corpuscular Volume 87.8 fL (80.0-100.0); Monocytes # (auto) 0.5 10 ^3/uL (0-1.3); Monocytes % (auto) 7.9 % (0.0-12.0); Neutrophils # (auto) 2.5 10 ^3/uL (1.6-8.6); Neutrophils % (auto) 43.1 % (37.0-80.0); Nucleated Red Blood Cells % 0.3 %; Red Blood Cells 4.26 10^6/uL (4.0-5.20); Red Cell Distribution Width 15.2 % (11.8-14.3); White Blood Cell 5.8 10^3/uL (4.4-10.8)
[2021-01-25 08:07] LABS: Calcium 8.1 mg/dL (8.5-10.1); Magnesium 2.7 mg/dL (1.6-2.6); Potassium 4.7 mmol/L (3.5-5.1)
[2021-01-25 08:20] LABS: BUN/Creatinine Ratio 15.1; Bilirubin, Total 0.2 mg/dL (0.2-1.0); Total Protein 6.5 g/dL (6.4-8.2)
[2021-01-25 08:37] LABS: Urine Bacteria NONE SEEN /hpf (None Seen); Urine Blood 1+ /uL (Negative); Urine Mucus FEW (None Seen); Urine Specific Gravity 1.017 (1.001-1.035); Urine WBC 2 /hpf (0 - 5)
[2021-01-25] MEDS ORDERED: fentaNYL CITRATE 100 MCG/2 ML VL ONE (08:52)
[2021-01-25] MEDS ORDERED: MIDAZOLAM HCL 2MG/2ML 2ml VIAL (1mg/ml) ONE (08:52)
[2021-01-25] MEDS ORDERED: MORPHINE SULF PF 2 MG/2 ML SYRG ONE (08:52)
[2021-01-25] MEDS ORDERED: PROPOFOL 10 MG/ML 20 ML IV ONE (09:19)
[2021-01-25] MEDS ORDERED: ONDANSETRON HCL 4 MG/2 ML VIAL ONE (09:48)
[2021-01-25] MEDS ORDERED: LIDOCAINE 2% (LOCAL ANESTH.) PF 5ml SDV ONE (09:48)
[2021-01-25] MEDS ORDERED: ePHEDrine SULFATE 50 MG/ML AMP ONE (10:49)
[2021-01-25] MEDS ORDERED: HEPARIN SODIUM (PORCINE) 5000 UNITS/ML 1ML VIAL IV ONE ×3 (12:30→22:15)
[2021-01-25] MEDS ORDERED: ASPirin 325 MG TAB PO ONE (13:15)
[2021-01-25] MEDS ORDERED: HEPARIN DRIP/D5W 100UNITS/ML 250 ML IV SCH ×2 (13:28→13:45)
[2021-01-25 13:45] LABS: INR 1.04 (0.9-1.15); Partial Thromboplastin Time 25.4 sec (23.6-33.0)
[2021-01-25] MEDS: SODIUM CHLOR 0.9% PF (SALINE LOCK) 10ML VIAL/SYR IV SCH ×2 (14:05→21:39)
[2021-01-25] MEDS ORDERED: NITROGLYCERIN 0.4 MG SL TAB SL PRN (14:45)
[2021-01-25] MEDS ORDERED: HYDROcodone-ACET 5/325MG TAB PO PRN (14:45)
[2021-01-25] MEDS ORDERED: ACETAMINOPHEN 325 MG TAB PO PRN (14:45)
[2021-01-25] MEDS ORDERED: LORazepam 0.5 MG TAB PO PRN (14:45)
[2021-01-25] MEDS ORDERED: ONDANSETRON HCL 4 MG/2 ML VIAL IV PRN (14:45)
[2021-01-25] MEDS ORDERED: DOCUSATE SOD 100 MG CAP PO PRN (14:45)
[2021-01-25] MEDS ORDERED: MORPHINE SULFATE INJECTION 2 MG/ML SYRG IV PRN (14:45)
[2021-01-25] MEDS: MORPHINE SULFATE INJECTION 2 MG/ML SYRG IV PRN ×2 (16:28→20:35)
[2021-01-25] MEDS: FUROSEMIDE 40 MG/4 ML VIAL IV SCH (18:00)
[2021-01-25] MEDS ORDERED: ASPI1TAB37 PO (19:47)
[2021-01-25] MEDS ORDERED: CARV12.544 PO (19:47)
[2021-01-25] MEDS ORDERED: INSU100I43 SC (19:47)
[2021-01-25] MEDS ORDERED: AMOX-277 PO (19:47)
[2021-01-25] MEDS ORDERED: GABA300C10 PO (19:47)
[2021-01-25 20:00] VITALS: BP 138/101
[2021-01-25] MEDS ORDERED: LISI40TA11 PO (20:00)
[2021-01-25] MEDS ORDERED: AMLO-496 PO (20:00)
[2021-01-25] MEDS ORDERED: ATOR80TA PO (20:00)
[2021-01-25] MEDS ORDERED: FURO40TA4 PO (20:00)
[2021-01-25] MEDS ORDERED: GLIP10TA9 PO (20:00)
[2021-01-25] MEDS ORDERED: URSO300C9 PO (20:00)
[2021-01-25 21:35] LABS: INR 1.06 (0.9-1.15); Partial Thromboplastin Time 31.6 sec (23.6-33.0)
[2021-01-25 22:00] VITALS: BP 138/101
[2021-01-25 22:14] VITALS: BP 138/101
[2021-01-25 22:17] VITALS: BP 138/101
[2021-01-25] MEDS ORDERED: AMLO-489 PO (22:44)
[2021-01-26] MEDS: MORPHINE SULFATE INJECTION 2 MG/ML SYRG IV PRN ×5 (00:42→22:12)
[2021-01-26] MEDS ORDERED: DEXTROSE (50%) 50ML SYRG IV PRN (01:00)
[2021-01-26 05:00] VITALS: BP 145/102
[2021-01-26 05:20] LABS: Basophils # (auto) 0 10 ^3/uL (0-0.2); Basophils % (auto) 0.8 % (0.0-2.0); Eosinophils # (auto) 0.1 10 ^3/uL (0-0.8); Eosinophils % (auto) 1.9 % (0.0-7.0); Hematocrit 36.5 % (36.0-46.0); Hemoglobin 11.7 g/dL (12.2-16.2); Lymphocytes # (auto) 2.9 10 ^3/uL (0.4-5.4); Lymphocytes % (auto) 48.8 % (10.0-50.0); Mean Corpuscular Hemoglobin 28.2 pg (28.0-32.0); Mean Corpuscular Hgb Conc. 32.1 g/dL (32.0-36.0); Mean Corpuscular Volume 87.7 fL (80.0-100.0); Monocytes # (auto) 0.4 10 ^3/uL (0-1.3); Neutrophils # (auto) 2.5 10 ^3/uL (1.6-8.6); Neutrophils % (auto) 41.5 % (37.0-80.0); Nucleated Red Blood Cells % 0.1 %; Red Blood Cells 4.16 10^6/uL (4.0-5.20); Red Cell Distribution Width 14.8 % (11.8-14.3); White Blood Cell 5.9 10^3/uL (4.4-10.8)
[2021-01-26 05:39] LABS: INR 1.08 (0.9-1.15); Partial Thromboplastin Time 58.1 sec (23.6-33.0)
[2021-01-26] MEDS: SODIUM CHLOR 0.9% PF (SALINE LOCK) 10ML VIAL/SYR IV SCH ×3 (05:41→22:13)
[2021-01-26] MEDS: ACCU-CHEK COMFORT CURVE STRIP VI SCH ×4 (06:01→22:11)
[2021-01-26] MEDS: FUROSEMIDE 40 MG/4 ML VIAL IV SCH ×2 (06:02→18:00)
[2021-01-26] MEDS: InsuLIN REG 1unit/0.01ml Soln (100units/ml) SC SCH ×5 (06:08→22:14)
[2021-01-26 08:00] VITALS: BP 126/99
[2021-01-26 09:00] VITALS: BP 126/99
[2021-01-26] MEDS ORDERED: ASPirin 81 mg TAB PO ONE (11:30)
[2021-01-26] MEDS ORDERED: LISINOPRIL 20 MG TAB PO ONE (11:30)
[2021-01-26 11:59] LABS: INR 1.06 (0.9-1.15); Partial Thromboplastin Time 46.9 sec (23.6-33.0)
[2021-01-26 12:33] LABS: Cholesterol 152 mg/dL (< 200); HDL Cholesterol 62 mg/dL (40-59); LDL Cholesterol 72 mg/dL (< 100); Triglycerides 149 mg/dL (< 150)
[2021-01-26] MEDS: METOPROLOL TARTRATE 25 MG TAB PO SCH ×2 (12:45→22:13)
[2021-01-26] MEDS: HEPARIN DRIP/D5W 100UNITS/ML 250 ML IV SCH (13:12)
[2021-01-26 13:17] VITALS: BP 137/95
[2021-01-26 17:00] VITALS: BP 114/82
[2021-01-26] MEDS ORDERED: HEPARIN SODIUM (PORCINE) 5000 UNITS/ML 1ML VIAL IV ONE (20:30)
[2021-01-26 22:00] VITALS: BP 133/100
[2021-01-27] MEDS: MORPHINE SULFATE INJECTION 2 MG/ML SYRG IV PRN ×5 (00:02→20:55)
[2021-01-27 00:04] LABS: Alcohol, Urine < 3.0 mg/dL (0-10); Amphetamine Screen, Urine NEGATIVE (NEGATIVE); Barbiturate Scree,Urine NEGATIVE (NEGATIVE); Benzodiazephine Screen, Urine NEGATIVE (NEGATIVE); Cannabinoid Screen, Urine POSITIVE (NEGATIVE); Cocaine Screen, Urine POSITIVE (NEGATIVE); Opiate Scree,Urine NEGATIVE (NEGATIVE); Phencyclidine Screen, Urine NEGATIVE (NEGATIVE)
[2021-01-27 01:28] LABS: INR 1.06 (0.9-1.15)
[2021-01-27 01:30] LABS: Partial Thromboplastin Time 101.1 sec (23.6-33.0)
[2021-01-27 05:00] VITALS: BP 138/94
[2021-01-27] MEDS: SODIUM CHLOR 0.9% PF (SALINE LOCK) 10ML VIAL/SYR IV SCH ×3 (05:11→21:31)
[2021-01-27] MEDS: FUROSEMIDE 40 MG/4 ML VIAL IV SCH (05:21)
[2021-01-27] MEDS: HEPARIN DRIP/D5W 100UNITS/ML 250 ML IV SCH ×2 (05:22→22:20)
[2021-01-27] MEDS: ACCU-CHEK COMFORT CURVE STRIP VI SCH ×4 (06:18→21:32)
[2021-01-27] MEDS: InsuLIN REG 1unit/0.01ml Soln (100units/ml) SC SCH ×4 (06:18→21:29)
[2021-01-27 07:48] LABS: INR 1.05 (0.9-1.15); Partial Thromboplastin Time 55.6 sec (23.6-33.0)
[2021-01-27] MEDS: ASPirin 81 mg TAB PO SCH (08:41)
[2021-01-27] MEDS: METOPROLOL TARTRATE 25 MG TAB PO SCH ×2 (08:43→21:32)
[2021-01-27] MEDS: LISINOPRIL 20 MG TAB PO SCH (08:43)
[2021-01-27 09:00] VITALS: BP 122/73
[2021-01-27] MEDS ORDERED: FLUCONAZOLE 100 MG TAB PO ONE (09:00)
[2021-01-27 13:00] VITALS: BP 131/94
[2021-01-27 14:05] LABS: INR 1.1 (0.9-1.15); Partial Thromboplastin Time 26.8 sec (23.6-33.0)
[2021-01-27 17:00] VITALS: BP 134/96
[2021-01-27] MEDS: FUROSEMIDE 20 MG/2 ML VIAL IV SCH (18:39)
[2021-01-27 21:45] VITALS: BP 130/97
[2021-01-27 22:37] LABS: INR 1.1 (0.9-1.15); Partial Thromboplastin Time 65.9 sec (23.6-33.0)
[2021-01-28] MEDS: MORPHINE SULFATE INJECTION 2 MG/ML SYRG IV PRN ×4 (03:14→21:03)
[2021-01-28 05:10] VITALS: BP 147/98
[2021-01-28] MEDS: FUROSEMIDE 20 MG/2 ML VIAL IV SCH ×2 (06:13→17:43)
[2021-01-28] MEDS: InsuLIN REG 1unit/0.01ml Soln (100units/ml) SC SCH ×4 (06:20→22:58)
[2021-01-28] MEDS: SODIUM CHLOR 0.9% PF (SALINE LOCK) 10ML VIAL/SYR IV SCH ×3 (06:21→22:58)
[2021-01-28] MEDS: ACCU-CHEK COMFORT CURVE STRIP VI SCH ×4 (06:22→22:00)
[2021-01-28] MEDS: ASPirin 81 mg TAB PO SCH (08:39)
[2021-01-28] MEDS: LISINOPRIL 20 MG TAB PO SCH (08:40)
[2021-01-28] MEDS: METOPROLOL TARTRATE 25 MG TAB PO SCH ×2 (08:40→22:59)
[2021-01-28 09:00] VITALS: BP 138/101
[2021-01-28 11:09] LABS: Basophils # (auto) 0 10 ^3/uL (0-0.2); Basophils % (auto) 0.7 % (0.0-2.0); Eosinophils # (auto) 0.1 10 ^3/uL (0-0.8); Hematocrit 36.1 % (36.0-46.0); Hemoglobin 11.9 g/dL (12.2-16.2); Lymphocytes # (auto) 2.8 10 ^3/uL (0.4-5.4); Lymphocytes % (auto) 44.5 % (10.0-50.0); Mean Corpuscular Hemoglobin 28.6 pg (28.0-32.0); Mean Corpuscular Hgb Conc. 33.1 g/dL (32.0-36.0); Mean Corpuscular Volume 86.3 fL (80.0-100.0); Monocytes # (auto) 0.5 10 ^3/uL (0-1.3); Monocytes % (auto) 7.8 % (0.0-12.0); Neutrophils # (auto) 2.8 10 ^3/uL (1.6-8.6); Nucleated Red Blood Cells % 0.1 %; Red Blood Cells 4.18 10^6/uL (4.0-5.20); Red Cell Distribution Width 14.6 % (11.8-14.3); White Blood Cell 6.3 10^3/uL (4.4-10.8)
[2021-01-28 11:38] LABS: INR 1.09 (0.9-1.15); Partial Thromboplastin Time 68.3 sec (23.6-33.0)
[2021-01-28 13:00] VITALS: BP 137/101
[2021-01-28 17:00] VITALS: BP_SYST 109; BP_SYST 129; BP_DIAS 61; BP_DIAS 98
[2021-01-28] MEDS: HEPARIN DRIP/D5W 100UNITS/ML 250 ML IV SCH (17:30)
[2021-01-28 22:00] VITALS: BP 130/98
[2021-01-29 00:13] LABS: INR 1.1 (0.9-1.15)
[2021-01-29 00:39] LABS: Partial Thromboplastin Time 74.2 sec (23.6-33.0)
[2021-01-29] MEDS: MORPHINE SULFATE INJECTION 2 MG/ML SYRG IV PRN ×4 (01:07→14:04)
[2021-01-29 05:00] VITALS: BP 146/96
[2021-01-29] MEDS: FUROSEMIDE 20 MG/2 ML VIAL IV SCH (06:27)
[2021-01-29] MEDS: SODIUM CHLOR 0.9% PF (SALINE LOCK) 10ML VIAL/SYR IV SCH (06:27)
[2021-01-29] MEDS: InsuLIN REG 1unit/0.01ml Soln (100units/ml) SC SCH ×2 (06:32→11:27)
[2021-01-29] MEDS: ACCU-CHEK COMFORT CURVE STRIP VI SCH ×2 (06:41→11:28)
[2021-01-29 09:05] VITALS: BP 140/90
[2021-01-29] MEDS: ASPirin 81 mg TAB PO SCH (10:15)
[2021-01-29] MEDS: METOPROLOL TARTRATE 25 MG TAB PO SCH (10:15)
[2021-01-29] MEDS: LISINOPRIL 20 MG TAB PO SCH (10:16)
[2021-01-29 11:50] VITALS: BP 140/90
[2021-01-29 11:54] LABS: INR 1.07 (0.9-1.15)
[2021-01-29 12:17] LABS: Partial Thromboplastin Time 75.7 sec (23.6-33.0)
[2021-01-29 12:58] VITALS: BP 135/92
== END 2021-01-29 14:00 | disposition home or self-care (01) | DRG 190 ==
LOC: ER 07:06 → TELE 14:31 → TELE-CENTR 20:01
PROVIDERS: ADMIT Hospitalist; ATTEND Family Medicine
DX: I21.4 Non-ST elevation (NSTEMI) myocardial infarction (principal); I50.23 Acute on chronic systolic (congestive) heart failure; E43 Unspecified severe protein-calorie malnutrition; R64 Cachexia; E11.9 Type 2 diabetes mellitus without complications; B37.9 Candidiasis, unspecified; F12.90 Cannabis use, unspecified, uncomplicated; F15.10 Other stimulant abuse, uncomplicated; I11.0 Hypertensive heart disease with heart failure; Z20.822 Contact with and (suspected) exposure to COVID-19; Z91.19 Patient's noncompliance with other medical treatment and regimen; Z87.442 Personal history of urinary calculi; Z72.0 Tobacco use; Z71.6 Tobacco abuse counseling; Z68.32 Body mass index [BMI] 32.0-32.9, adult
CPT/HCPCS: 36415; 71045; 74176; 80053; 80061; 80307; 80320; 81001; 81025; 82962; 83735; 83880; 84484; 85025; 85610; 85730; 87081; 87426; 87804; 93005; 93306; 96365; 96375; 96376; G0378; J1815; J2001; J2250; J2405; J2704

== ENCOUNTER 2021-03-15 17:05 | Inpatient (IN) | payer MEDICAID ==
[~2021-03-15] VITALS: Ht 170.2 cm; Wt 94.4 kg
[~2021-03-15 17:05] MED LIST changes: +AMLO-489 PO; +AMOX-277 PO; +ASPI1TAB37 PO; -ASPI81CH43 PO; +ATOR80TA PO; -CAR3125T PO; +CARV12.544 PO; -CITA-244 PO; +FURO40TA4 PO; +GABA300C10 PO; +GLIP10TA9 PO; +INSU100I43 SC; -INSUINJ7 IJ; +LISI40TA11 PO; +URSO300C9 PO
[2021-03-15] MEDS ORDERED: FUROSEMIDE 40 MG/4 ML VIAL IV ONE (17:30)
[2021-03-15 18:16] LABS: Basophils # (auto) 0.1 10 ^3/uL (0-0.2); Basophils % (auto) 1.2 % (0.0-2.0); Eosinophils # (auto) 0 10 ^3/uL (0-0.8); Eosinophils % (auto) 0.5 % (0.0-7.0); Hematocrit 40.5 % (36.0-46.0); Lymphocytes # (auto) 2.7 10 ^3/uL (0.4-5.4); Lymphocytes % (auto) 45.8 % (10.0-50.0); Mean Corpuscular Hemoglobin 27.2 pg (28.0-32.0); Mean Corpuscular Hgb Conc. 32.1 g/dL (32.0-36.0); Mean Corpuscular Volume 84.9 fL (80.0-100.0); Monocytes # (auto) 0.6 10 ^3/uL (0-1.3); Neutrophils # (auto) 2.5 10 ^3/uL (1.6-8.6); Neutrophils % (auto) 42.5 % (37.0-80.0); Nucleated Red Blood Cells % 0.4 %; Red Blood Cells 4.77 10^6/uL (4.0-5.20); Red Cell Distribution Width 15.7 % (11.8-14.3); White Blood Cell 5.9 10^3/uL (4.4-10.8)
[2021-03-15 18:36] LABS: BUN/Creatinine Ratio 14.2; Calcium 8.4 mg/dL (8.5-10.1); Potassium 4.7 mmol/L (3.5-5.1)
[2021-03-15 18:39] LABS: Bilirubin, Total 0.3 mg/dL (0.2-1.0); Total Protein 6.3 g/dL (6.4-8.2)
[2021-03-15] MEDS ORDERED: DEXTROSE (50%) 50ML SYRG IV PRN (21:30)
[2021-03-15] MEDS ORDERED: ENOXAPARIN SOD 100 MG/1 ML SYRINGE SC ONE (21:30)
[2021-03-15] MEDS ORDERED: ACETAMINOPHEN 325 MG TAB PO PRN (21:30)
[2021-03-15] MEDS ORDERED: NITROGLYCERIN 0.4 MG SL TAB SL PRN (21:30)
[2021-03-15] MEDS ORDERED: TEMAZEPAM 15 MG CAP PO PRN (21:30)
[2021-03-15] MEDS ORDERED: MORPHINE SULFATE INJECTION 2 MG/ML SYRG IV PRN (21:30)
[2021-03-15] MEDS ORDERED: ONDANSETRON HCL 4 MG/2 ML VIAL IV PRN (21:30)
[2021-03-15] MEDS: CARVEDILOL 12.5 MG TAB PO SCH (22:05)
[2021-03-15] MEDS: ATORVASTATIN 20 MG TAB PO SCH (22:12)
[2021-03-15 22:23] LABS: Urine Bacteria FEW /hpf (None Seen); Urine Blood 2+ /uL (Negative); Urine Hyaline Cast FEW /lpf (0 - 2); Urine Specific Gravity 1.012 (1.001-1.035); Urine WBC 38 /hpf (0 - 5)
[2021-03-15] MEDS: ACCU-CHEK COMFORT CURVE STRIP VI SCH (22:25)
[2021-03-15] MEDS: InsuLIN REG 1unit/0.01ml Soln (100units/ml) SC SCH (22:29)
[2021-03-15 23:04] LABS: INR 1.14 (0.9-1.15); Partial Thromboplastin Time 27.8 sec (23.6-33.0)
[2021-03-15] MEDS ORDERED: cefTRIAXone 1GM/50ML D5W 50 ML IV ONE (23:15)
[2021-03-16] VITALS (7 sets, daily range): BP systolic 118–141; BP diastolic 79–109
[2021-03-16] LABS: Alcohol, Urine < 3.0 mg/dL (0-10); Amphetamine Screen, Urine POSITIVE (NEGATIVE); Barbiturate Scree,Urine NEGATIVE (NEGATIVE); Benzodiazephine Screen, Urine NEGATIVE (NEGATIVE); Cannabinoid Screen, Urine POSITIVE (NEGATIVE); Cocaine Screen, Urine NEGATIVE (NEGATIVE); Opiate Scree,Urine NEGATIVE (NEGATIVE); Phencyclidine Screen, Urine NEGATIVE (NEGATIVE)
[2021-03-16] MEDS ORDERED: FURO80TA3 PO (01:45)
[2021-03-16] MEDS ORDERED: CARV25TA55 PO (01:48)
[2021-03-16] MEDS ORDERED: ALBU108A5 IN (01:48)
[2021-03-16] MEDS ORDERED: ALBUTEROL SULF 2.5 MG/0.5ML(0.5%) NEB SOLN NEB PRN (02:15)
[2021-03-16] MEDS: HYDROcodone-ACET 5/325MG TAB PO PRN ×3 (02:36→19:05)
[2021-03-16 05:05] LABS: Basophils # (auto) 0 10 ^3/uL (0-0.2); Basophils % (auto) 0.7 % (0.0-2.0); Eosinophils # (auto) 0.1 10 ^3/uL (0-0.8); Eosinophils % (auto) 1.3 % (0.0-7.0); Hematocrit 37.4 % (36.0-46.0); Hemoglobin 12.1 g/dL (12.2-16.2); Lymphocytes # (auto) 3.1 10 ^3/uL (0.4-5.4); Lymphocytes % (auto) 51.5 % (10.0-50.0); Mean Corpuscular Hemoglobin 27.1 pg (28.0-32.0); Mean Corpuscular Hgb Conc. 32.3 g/dL (32.0-36.0); Monocytes # (auto) 0.6 10 ^3/uL (0-1.3); Monocytes % (auto) 10.4 % (0.0-12.0); Neutrophils # (auto) 2.2 10 ^3/uL (1.6-8.6); Neutrophils % (auto) 36.1 % (37.0-80.0); Nucleated Red Blood Cells % 0.3 %; Red Blood Cells 4.45 10^6/uL (4.0-5.20); Red Cell Distribution Width 15.4 % (11.8-14.3)
[2021-03-16 05:31] LABS: Potassium 4.1 mmol/L (3.5-5.1)
[2021-03-16 05:40] LABS: Albumin 1.8 g/dL (3.4-5.0); BUN/Creatinine Ratio 15.5; Bilirubin, Total 0.2 mg/dL (0.2-1.0); Calcium 7.6 mg/dL (8.5-10.1); Total Protein 5.2 g/dL (6.4-8.2)
[2021-03-16] MEDS: ACCU-CHEK COMFORT CURVE STRIP VI SCH ×4 (06:33→21:32)
[2021-03-16] MEDS: InsuLIN REG 1unit/0.01ml Soln (100units/ml) SC SCH ×4 (06:33→21:27)
[2021-03-16] MEDS: ASPirin 81 mg TAB PO SCH (08:46)
[2021-03-16] MEDS: cefTRIAXone 1GM/50ML D5W 50 ML IV SCH (08:46)
[2021-03-16] MEDS: CARVEDILOL 12.5 MG TAB PO SCH ×2 (08:47→21:36)
[2021-03-16] MEDS: amLODIPine BESYLATE 5 MG TAB PO SCH (08:48)
[2021-03-16] MEDS: ENOXAPARIN SOD 40 MG/0.4 ML SYRINGE SC SCH (08:48)
[2021-03-16] MEDS: PANTOPRAZOLE 40 MG TAB PO SCH (08:48)
[2021-03-16] MEDS: LISINOPRIL 20 MG TAB PO SCH (10:00)
[2021-03-16] MEDS ORDERED: NICOTINE 21MG/24 HR TOPICAL PATCH TD ONE (12:30)
[2021-03-16] MEDS: ATORVASTATIN 20 MG TAB PO SCH (21:32)
[2021-03-17] MEDS: HYDROcodone-ACET 5/325MG TAB PO PRN ×3 (02:00→22:22)
[2021-03-17 05:00] VITALS: BP 129/87
[2021-03-17 05:26] LABS: BUN/Creatinine Ratio 21.5; Calcium 7.7 mg/dL (8.5-10.1); Potassium 4.7 mmol/L (3.5-5.1)
[2021-03-17] MEDS: ACCU-CHEK COMFORT CURVE STRIP VI SCH ×4 (06:15→22:21)
[2021-03-17] MEDS: FUROSEMIDE 20 MG/2 ML VIAL IV SCH ×2 (06:15→16:59)
[2021-03-17] MEDS: InsuLIN REG 1unit/0.01ml Soln (100units/ml) SC SCH ×4 (06:29→22:23)
[2021-03-17 08:00] VITALS: BP 137/91
[2021-03-17] MEDS: cefTRIAXone 1GM/50ML D5W 50 ML IV SCH (08:55)
[2021-03-17] MEDS: CARVEDILOL 12.5 MG TAB PO SCH ×2 (08:56→22:21)
[2021-03-17] MEDS: ASPirin 81 mg TAB PO SCH (08:56)
[2021-03-17] MEDS: amLODIPine BESYLATE 5 MG TAB PO SCH (08:57)
[2021-03-17] MEDS: PANTOPRAZOLE 40 MG TAB PO SCH (08:57)
[2021-03-17] MEDS: ENOXAPARIN SOD 40 MG/0.4 ML SYRINGE SC SCH (08:58)
[2021-03-17] MEDS: LISINOPRIL 20 MG TAB PO SCH (08:58)
[2021-03-17] MEDS: NICOTINE 21MG/24 HR TOPICAL PATCH TD SCH (09:04)
[2021-03-17 09:50] VITALS: BP 137/91
[2021-03-17 12:35] VITALS: BP 128/96
[2021-03-17 16:30] VITALS: BP 134/82
[2021-03-17 21:16] VITALS: BP 129/89
[2021-03-17] MEDS: ATORVASTATIN 20 MG TAB PO SCH (22:21)
[2021-03-18] MEDS: FUROSEMIDE 20 MG/2 ML VIAL IV SCH (05:13)
[2021-03-18 05:25] VITALS: BP 129/86
[2021-03-18 06:07] LABS: BUN/Creatinine Ratio 20.6; Calcium 7.9 mg/dL (8.5-10.1); Potassium 4.4 mmol/L (3.5-5.1)
[2021-03-18] MEDS: ACCU-CHEK COMFORT CURVE STRIP VI SCH ×2 (06:09→11:45)
[2021-03-18] MEDS: InsuLIN REG 1unit/0.01ml Soln (100units/ml) SC SCH ×2 (06:10→11:46)
[2021-03-18 08:00] VITALS: BP 120/79
[2021-03-18 09:00] VITALS: BP_SYST 101; BP_SYST 120; BP_DIAS 65; BP_DIAS 79
[2021-03-18] MEDS: ASPirin 81 mg TAB PO SCH (09:17)
[2021-03-18] MEDS: cefTRIAXone 1GM/50ML D5W 50 ML IV SCH (09:24)
[2021-03-18] MEDS: CARVEDILOL 12.5 MG TAB PO SCH (09:24)
[2021-03-18] MEDS: amLODIPine BESYLATE 5 MG TAB PO SCH (09:24)
[2021-03-18] MEDS: ENOXAPARIN SOD 40 MG/0.4 ML SYRINGE SC SCH (09:25)
[2021-03-18] MEDS: PANTOPRAZOLE 40 MG TAB PO SCH (09:25)
[2021-03-18] MEDS: LISINOPRIL 20 MG TAB PO SCH (09:25)
[2021-03-18] MEDS: NICOTINE 21MG/24 HR TOPICAL PATCH TD SCH (09:26)
[2021-03-18] MEDS ORDERED: NIC21P TOP (10:30)
[2021-03-18] MEDS ORDERED: HYDR-4902 PO (10:30)
[2021-03-18] MEDS: HYDROcodone-ACET 5/325MG TAB PO PRN (11:58)
[2021-03-18 13:00] VITALS: BP 135/82
== END 2021-03-18 15:57 | disposition home or self-care (01) | DRG 190 ==
LOC: EDBD 17:05 → ER 17:05 → TELE 21:29 → TELE-CENTR 23:42
PROVIDERS: ADMIT Nurse Practitioner; ATTEND Family Medicine
DX: I21.4 Non-ST elevation (NSTEMI) myocardial infarction (principal); I50.23 Acute on chronic systolic (congestive) heart failure; E43 Unspecified severe protein-calorie malnutrition; I42.0 Dilated cardiomyopathy; E11.9 Type 2 diabetes mellitus without complications; E78.00 Pure hypercholesterolemia, unspecified; F12.10 Cannabis abuse, uncomplicated; F14.10 Cocaine abuse, uncomplicated; F15.10 Other stimulant abuse, uncomplicated; F17.210 Nicotine dependence, cigarettes, uncomplicated; Z20.822 Contact with and (suspected) exposure to COVID-19; I11.0 Hypertensive heart disease with heart failure; Z82.49 Family history of ischemic heart disease and other diseases of the circulatory system; Z87.442 Personal history of urinary calculi; Z91.19 Patient's noncompliance with other medical treatment and regimen; Z71.6 Tobacco abuse counseling; Z68.32 Body mass index [BMI] 32.0-32.9, adult
CPT/HCPCS: 36415; 71045; 80048; 80053; 80307; 81001; 82962; 83880; 84484; 85025; 85610; 85730; 87426; 93005; 96372; 96374; 96375; G0378; J0696; J1815; J2405